=== PATIENT | female | born 1960 | race Caucasian/White ===

== ENCOUNTER → 2020-04-04 | Outpatient (CLI) | payer MEDICAID, OTHER ==
[2016-08-22 15:54] VITALS: BP 166/72
[~2020-04-04] MED LIST: CALC500T54 PO; CHOL500045 PO; LEVO50TA5 PO; MUPI22OI2 TP; SULF1TAB24 PO
--- NOTE | 2020-04-04 14:39 | KCIC ---
5 views of the lumbar spine without comparison for mild low back pain, no known injury. FINDINGS: There has been a prior cholecystectomy. There is an age-indeterminate compression deformity of L1, which appears to be fused anteriorly to T12 by osteophytes. There may be subtle height loss at T10 as well. There is increased sclerosis of L5 as well as the superior endplate of S1, and perhaps some mild widening of the joint space at this level. Facet arthrosis is seen in the lower levels as well. Uncovertebral osteophytes are present at multiple levels. IMPRESSION: 1. Age-indeterminate compression deformity of L1, with possible height loss at T10 as well. 2. Increased sclerosis of L5 and S1, with subtle widening of the L5-S1 intervertebral disc space and mild indistinctness of the margins. Findings could be degenerative, or congenital, however discitis/osteomyelitis cannot be excluded and further evaluation with MRI should be considered. Electronically signed by: Javier Conley MD (04/04/2020 2:36 PM) [id number]
== END | disposition home or self-care (01) ==
LOC: KCIC 10:21
PROVIDERS: ATTEND Family Medicine
DX: M51.87 Other intervertebral disc disorders, lumbosacral region (principal); M43.8X6 Other specified deforming dorsopathies, lumbar region
CPT/HCPCS: 72110

== ENCOUNTER → 2020-05-11 | Outpatient (CLI) | payer MEDICAID, OTHER ==
[2016-08-22 15:54] VITALS: BP 166/72
[~2020-05-11] MED LIST changes: +CALC-30 PO; +LEVO100T5 PO; +LORA10TA3 PO; +POLY17PO29 PO
--- NOTE | 2020-05-11 15:49 | KCIC ---
MRI Lumbar Spine without contrast History: Lumbar pain, abnormal x-ray Technique: Multiplanar, multi sequential noncontrast MR imaging was performed of the lumbar spine. Comparison: Lumbar spine radiographs April 04, 2020 Findings: There is some motion. Most inferior fully formed intervertebral disc space at which there is edema is considered L5-S1. There is edema diffusely of L5 and S1 vertebral bodies as well as increased edema and likely some fluid in the widened L5-S1 intervertebral disc space. There is mild inferior L5 endplate concavity. There is old superior L1 compression deformity without osseous retropulsion or marrow edema. Conus terminates at the mid aspect of L1. There is moderate to severe L4-5 degenerative disc disease, minimally L2-3, minimal disc desiccation L1-2 and L3-4. L1-L2: There is mild facet degenerative change. This level was not fully included on the axial images. Neural foramina and spinal canal are adequate. L2-L3: There is minimal bulge. There is mild buckling of the ligamentum flavum and facet degenerative change. There is mild narrowing of the far lateral recesses greater on the left. There is minimal posterior narrowing of the left neural foramen by facet, right neural foramen adequate. L3-L4: There is minimal buckling of the ligamentum flavum. Spinal canal and neural foramina are adequate. L4-L5: There is minimal disc osteophyte complex and bulge. There is mild buckling of the ligamentum flavum and facet degenerative change. There is mild narrowing of the far left lateral recess. There is mild narrowing of the left neural foramen, right neural foramen overall adequate. L5-S1: There is probable minimal posterior bulge. There is mild prominence of posterior epidural fat centrally. There is mild facet degenerative change. Spinal canal is overall adequate. There is fairly severe narrowing of the bilateral neural foramina in part from some heterogeneous signal emanating from the intervertebral disc space which may be in part from disc osteophyte complex and edematous bulge. Impression: 1. There is diffuse abnormal edema of what is considered the L5-S1 vertebral bodies as well as edematous signal abnormality in the widened L5-S1 intervertebral disc space. Primary concern would be for infectious spondylitis. Edematous signal abnormality contributes to fairly severe bilateral L5-S1 neural foramina compromise. 2. There is no significant lumbar spinal stenosis, mild narrowing of the far left lateral recess at L4-5. 3. There is old superior L1 compression deformity. Electronically signed by: Chay Tipton MD (05/11/2020 3:46 PM) [id number]
== END ==
LOC: KCIC MRI 12:33
PROVIDERS: ATTEND Family Medicine
DX: M51.36 Other intervertebral disc degeneration, lumbar region (principal); M25.78 Osteophyte, vertebrae
CPT/HCPCS: 72148

== ENCOUNTER 2020-05-12 17:58 | Inpatient (IN) | payer OTHER, MEDICAID ==
[~2020-05-12] VITALS: Ht 149.9 cm; Wt 95.2 kg
[~2020-05-12 17:58] MED LIST changes: -CALC-30 PO; -LEVO100T5 PO; -LORA10TA3 PO; -POLY17PO29 PO
[2020-05-12] MEDS ORDERED: LEVO100T5 PO (18:45)
[2020-05-12] MEDS ORDERED: LORA10TA3 PO (18:45)
[2020-05-12] MEDS ORDERED: POLY17PO29 PO (18:45)
[2020-05-12] MEDS ORDERED: CALC-30 PO (18:45)
--- NOTE | 2020-05-12 20:14 | PHYS DOC ---
Past Medical History Past Medical History: Gallstones, Hypothyroid, Other Additional Past Medical Histor: developmentally delayed Past Surgical History: Cholecystectomy Smoking Status: Never Smoker Alcohol Use: None Drug Use: None General Adult EDM: Chief Complaint: OTHER COMPLAINTS HPI: HPI: Patient is a 60 year old female who presents with saw Dr. Weaver today and has been seeing him for the last several months for her low back pain. She has been having low back pain for several months and they have been using a heating pad and ibuprofen but is not been helping. She had a MRI done and read came back stating that she has possible infectious spondylitis. Dr. Weaver is wanting her to be evaluated here in the ED. Patient lives in a nursing home as she is developmentally delayed. Patient is unable to answer questions about her health. Patient states her name and follows very simple directions. The nurse called Cecil and he was the nurse at the developmental home and talk to her. Patient has history of gallstones, hypothyroidism, cholecystectomy. There is no one here from the nursing home with the patient. Patient is very scared and stating that " I want to go home". Patient is denying any pain is more. Vital signs are within normal limits. Review of Systems: Review of Systems: Constitutional: Denies fever or chills. [] Eyes: Denies change in visual acuity. [] HENT: Denies nasal congestion or sore throat. [] Respiratory: Denies cough or shortness of breath. [] Cardiovascular: Denies chest pain or edema. [] GI: Denies abdominal pain, nausea, vomiting, bloody stools or diarrhea. [] : Denies dysuria. [] Musculoskeletal: Low back pain or joint pain. [] Integument: Denies rash. [] Neurologic: Denies headache, focal weakness or sensory changes. [] Endocrine: Denies polyuria or polydipsia. [] Lymphatic: Denies swollen glands. [] Psychiatric: Denies depression or anxiety. [] Heart Score: Risk Factors: Risk Factors: DM, Current or recent (<one month) smoker, HTN, HLP, family history of CAD, obesity. Risk Scores: Score 0 - 3: 2.5% MACE over next 6 weeks - Discharge Home Score 4 - 6: 20.3% MACE over next 6 weeks - Admit for Clinical Observation Score 7 - 10: 72.7% MACE over next 6 weeks - Early Invasive Strategies Allergies: Allergies: Allergies Coded Allergies Type Severity Reaction Last Updated Verified No Known Drug Allergies 05/12/20 No Physical Exam: PE: Constitutional: Well developed, well nourished, no acute distress, non-toxic appearance. [] HENT: Normocephalic, atraumatic, bilateral external ears normal, oropharynx mois t, no oral exudates, nose normal. [] Eyes: PERRLA, EOMI, conjunctiva normal, no discharge. [] Neck: Normal range of motion, no tenderness, supple, no stridor. [] Cardiovascular:Heart rate regular rhythm, no murmur [] Lungs & Thorax: Bilateral breath sounds clear to auscultation [] Abdomen: Bowel sounds normal, soft, no tenderness, no masses, no pulsatile masses. [] Skin: Warm, dry, no erythema, no rash. [] Back: No tenderness, no CVA tenderness. [] Extremities: No tenderness, no cyanosis, no clubbing, ROM intact, no edema. [] Neurologic: Alert and oriented X 3, normal motor function, normal sensory function, no focal deficits noted. [] Psychologic: Affect normal, judgement normal, mood normal. Normal Physical Exam[] Current Patient Data: Vital Signs: Vital Signs Date Time Temp Pulse Resp B/P (MAP) Pulse Ox O2 Delivery O2 Flow Rate FiO2 05/12/20 18:15 98.8 107 24 160/92 (114) 99 Room Air 98.8 EKG: EKG: [] Radiology/Procedures: Radiology/Procedures: [] Impression: [facility] [address] [place] [address] IMAGING REPORT Signed PATIENT: JULIO BEY ACCOUNT: [id number] : 1960 LOCATION: [facility] MRI AGE: 60 SEX: F EXAM STATUS: REG CLI ORD. PHYSICIAN: LALA WEAVER MD REASON: LUMBAR PAIN PROCEDURE: LUMBAR SPINE WO CONTRAST MRI Lumbar Spine without contrast History: Lumbar pain, abnormal x-ray Technique: Multiplanar, multi sequential noncontrast MR imaging was performed of the lumbar spine. Comparison: Lumbar spine radiographs April 04, 2020 Findings: There is some motion. Most inferior fully formed intervertebral disc space at which there is edema is considered L5-S1. There is edema diffusely of L5 and S1 vertebral bodies as well as increased edema and likely some fluid in the widened L5-S1 intervertebral disc space. There is mild inferior L5 endplate concavity. There is old superior L1 compression deformity without osseous retropulsion or marrow edema. Conus terminates at the mid aspect of L1. There is moderate to severe L4-5 degenerative disc disease, minimally L2-3, minimal disc desiccation L1-2 and L3-4. L1-L2: There is mild facet degenerative change. This level was not fully included on the axial images. Neural foramina and spinal canal are adequate. L2-L3: There is minimal bulge. There is mild buckling of the ligamentum flavum and facet degenerative change. There is mild narrowing of the far lateral recesses greater on the left. There is minimal posterior narrowing of the left neural foramen by facet, right neural foramen adequate. L3-L4: There is minimal buckling of the ligamentum flavum. Spinal canal and neural foramina are adequate. L4-L5: There is minimal disc osteophyte complex and bulge. There is mild buckling of the ligamentum flavum and facet degenerative change. There is mild narrowing of the far left lateral recess. There is mild narrowing of the left neural foramen, right neural foramen overall adequate. L5-S1: There is probable minimal posterior bulge. There is mild prominence of posterior epidural fat centrally. There is mild facet degenerative change. Spinal canal is overall adequate. There is fairly severe narrowing of the bilateral neural foramina in part from some heterogeneous signal emanating from the intervertebral disc space which may be in part from disc osteophyte complex and edematous bulge. Impression: 1. There is diffuse abnormal edema of what is considered the L5-S1 vertebral bodies as well as edematous signal abnormality in the widened L5-S1 intervertebral disc space. Primary concern would be for infectious spondylitis. Edematous signal abnormality contributes to fairly severe bilateral L5-S1 neural foramina compromise. 2. There is no significant lumbar spinal stenosis, mild narrowing of the far left lateral recess at L4-5. 3. There is old superior L1 compression deformity. Electronically signed by: Germán Ochoa MD (05/11/2020 3:46 PM) [id number] DICTATED and SIGNED BY: GERMÁN OCHOA MD DATE: 05/11/20 1546 Course & Med Decision Making: Course & Med Decision Making Pertinent Labs and Imaging studies reviewed. (See chart for details) See HPI. Abdomen is soft and nontender. Skin pink warm and dry. Vital signs within normal limits. No tenderness or bruising or deformity seen to the patient's back and there is no spine bony spiny focal tenderness with palpation. Patient is able to sit up in the bed on her own. She is moving all extremities equally and normal. She has full range of motion of her neck. Ambulatory with a steady gait. Alert and oriented. MRI Impression: 1. There is diffuse abnormal edema of what is considered the L5-S1 vertebral bodies as well as edematous signal abnormality in the widened L5-S1 intervertebral disc space. Primary concern would be for infectious spondylitis. Edematous signal abnormality contributes to fairly severe bilateral L5-S1 neural foramina compromise. 2. There is no significant lumbar spinal stenosis, mild narrowing of the far left lateral recess at L4-5. 3. There is old superior L1 compression deformity. Blood work unremarkable. We do not currently have any neurosurgery on at this time. I called ID and spoke with Dr Figueroa and she stated no antibiotics at this time because a Biopsy needs to be done first. [] Summer Disclaimer: Summer Disclaimer: This electronic medical record was generated, in whole or in part, using a voice recognition dictation system. 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
[2020-05-12 20:49] LABS: BILIRUBIN,URINE NEGATIVE (NEG); CLARITY,URINE CLEAR; COLOR,URINE YELLOW; NITRITE,URINE NEGATIVE (NEG); PH,URINE 5.5 (<5.0-8.0); PROTEIN,URINE NEGATIVE (NEG-TRACE); UROBILINOGEN,URINE 0.2 mg/dL (0.2 mg/dL)
[2020-05-12 20:49] LABS: BASO % 0 % (0-3); EOS # 0.3 x10^3/uL (0.0-0.7); EOS % 4 % (0-3); HEMATOCRIT 38.1 % (36.0-47.0); HEMOGLOBIN 12.9 g/dL (12.0-15.5); LYMPH # 1.3 x10^3/uL (1.0-4.8); LYMPH % 18 % (24-48); MEAN CORPUSCULAR HEMOGLOBIN 32 pg (25-35); MEAN CORPUSCULAR HGB CONC 34 g/dL (31-37); MEAN CORPUSCULAR VOLUME 94 fL (79-100); MONO # 0.7 x10^3/uL (0.0-1.1); MONO % 9 % (0-9); NEUT # 4.9 x10^3/uL (1.8-7.7); NEUT % 69 % (31-73); PLATELET COUNT 179 x10^3/uL (140-400); RED BLOOD COUNT 4.06 x10^6/uL (3.50-5.40); RED CELL DISTRIBUTION WIDTH 14.5 % (11.5-14.5); WHITE BLOOD COUNT 7.2 x10^3/uL (4.0-11.0)
[2020-05-12 20:53] LABS: BACTERIA,URINE FEW /HPF (0-FEW); RBC,URINE OCC /HPF (0-2); SQUAMOUS EPITHELIAL CELL,UR MANY /LPF
[2020-05-12 20:57] LABS: CALCIUM 9.6 mg/dL (8.5-10.1); CREATININE 0.9 mg/dL (0.6-1.0); GFR 63.7; POTASSIUM 4.8 mmol/L (3.5-5.1)
[2020-05-12 21:02] LABS: ALBUMIN 3.6 g/dL (3.4-5.0); ALBUMIN/GLOBULIN RATIO 0.9 (1.0-1.7); TOTAL BILIRUBIN 0.3 mg/dL (0.2-1.0); TOTAL PROTEIN 7.7 g/dL (6.4-8.2)
[2020-05-13] VITALS (7 sets, daily range): BP systolic 133–164; BP diastolic 56–99
[2020-05-13] MEDS ORDERED: ACETAMINOPHEN 325 MG TABLET. PO PRN (05:15)
--- NOTE | 2020-05-13 11:01 | PDOC1 ---
History and Physical Date of Admission Date of Admission DATE: 05/13/20 TIME: 11:01 History of Present Illness History of Present Illness Ms. Meyers, is a 60 year old female who presents with saw Dr. Aguiar today and has been seeing him for the last several months for her low back pain. She has been having low back pain for several months and they have been using a heating pad and ibuprofen but is not been helping. She had a MRI done and read came back stating that she has possible infectious spondylitis. Dr. Aguiar is wanting her to be evaluated here in the ED. Patient lives in a correction as she is developmentally delayed. Patient is unable to answer questions about her health. Patient states her name and follows very simple directions. The nurse called Cecil and he was the nurse at the developmental home and talk to her. Patient has history of gallstones, hypothyroidism, cholecystectomy. There is no one here from the correction with the patient. Patient is very scared and stating that " I want to go home". Patient is denying any pain is more. Vital signs are within normal limits. 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 1 Lizeth TP TID Bactrim Ds Tablet (Sulfamethoxazole/Trimethoprim) 1 Each Tablet 1 Each PO BID Reported Miralax (Polyethylene Glycol 3350) 17 Gm Powd.pack 1 Pkt PO DAILY Loratadine 10 Mg Tablet 1 Tab PO DAILY Levothyroxine Sodium 100 Mcg Tablet 1 Tab PO DAILY Calcium 500 + Vit D 400 Tablet (Calcium Carbonate/Vitamin D3) 1 Each Tablet 1 Tab PO DAILY 30 Days Vitamin D (Cholecalciferol (Vitamin D3)) 5,000 Unit Tablet 5,000 Unit PO Allergies Allergies: Coded Allergies: No Known Drug Allergies (Unverified , 05/12/20) ROS Review of System unable, mental status, she repeatedly says "ice cream" denied back pain Physical Exam General: Alert, Cooperative, mild distress (upset about things, is animated about wanting colored pencils and such, ) HEENT: Atraumatic Lungs: Clear to auscultation Heart: S1S2 Abdomen: Normal bowel sounds, Soft Extremities: No clubbing, No edema, Normal pulses Skin: No breakdown Neuro: Sensation intact, Other Psych/Mental Status: Other (baseline mental status low) Vitals Vitals Vital Signs Date Time Temp Pulse Resp B/P (MAP) Pulse Ox O2 Delivery O2 Flow Rate FiO2 05/13/20 07:59 98.9 80 18 164/83 (110) 96 Room Air 98.9 Labs Labs Laboratory Tests Test 05/12/20 20:25 05/12/20 20:37 05/13/20 06:45 Urine Collection Type Unknown Urine Color Yellow Urine Clarity Clear Urine pH 5.5 (<5.0-8.0) Urine Specific [place] 1.015 (1.000-1.030) Urine Protein Negative mg/dL (NEG-TRACE) Urine Glucose (UA) Negative mg/dL (NEG) Urine Ketones (Stick) Negative mg/dL (NEG) Urine Blood Negative (NEG) Urine Nitrite Negative (NEG) Urine Bilirubin Negative (NEG) Urine Urobilinogen Dipstick 0.2 mg/dL (0.2 mg/dL) Urine Leukocyte Esterase Moderate (NEG) Urine RBC Occ /HPF (0-2) Urine WBC 1-4 /HPF (0-4) Urine Squamous Epithelial Cells Many /LPF Urine Bacteria Few /HPF (0-FEW) Urine Mucus Mod /LPF White Blood Count 7.2 x10^3/uL (4.0-11.0) Red Blood Count 4.06 x10^6/uL (3.50-5.40) Hemoglobin 12.9 g/dL (12.0-15.5) Hematocrit 38.1 % (36.0-47.0) Mean Corpuscular Volume 94 fL (79-100) Mean Corpuscular Hemoglobin 32 pg (25-35) Mean Corpuscular Hemoglobin Concent 34 g/dL (31-37) Red Cell Distribution Width 14.5 % (11.5-14.5) Platelet Count 179 x10^3/uL (140-400) Neutrophils (%) (Auto) 69 % (31-73) Lymphocytes (%) (Auto) 18 % (24-48) Monocytes (%) (Auto) 9 % (0-9) Eosinophils (%) (Auto) 4 % (0-3) Basophils (%) (Auto) 0 % (0-3) Neutrophils # (Auto) 4.9 x10^3/uL (1.8-7.7) Lymphocytes # (Auto) 1.3 x10^3/uL (1.0-4.8) Monocytes # (Auto) 0.7 x10^3/uL (0.0-1.1) Eosinophils # (Auto) 0.3 x10^3/uL (0.0-0.7) Basophils # (Auto) 0.0 x10^3/uL (0.0-0.2) Sodium Level 139 mmol/L (136-145) Potassium Level 4.8 mmol/L (3.5-5.1) Chloride Level 103 mmol/L (98-107) Carbon Dioxide Level 28 mmol/L (21-32) Anion Gap 8 (6-14) Blood Urea Nitrogen 16 mg/dL (7-20) Creatinine 0.9 mg/dL (0.6-1.0) Estimated GFR (Cockcroft-Gault) 63.7 BUN/Creatinine Ratio 18 (6-20) Glucose Level 99 mg/dL (70-99) Calcium Level 9.6 mg/dL (8.5-10.1) Total Bilirubin 0.3 mg/dL (0.2-1.0) Aspartate Amino Transf (AST/SGOT) 39 U/L (15-37) Alanine Aminotransferase (ALT/SGPT) 33 U/L (14-59) Alkaline Phosphatase 112 U/L (46-116) Total Protein 7.7 g/dL (6.4-8.2) Albumin 3.6 g/dL (3.4-5.0) Albumin/Globulin Ratio 0.9 (1.0-1.7) Lactic Acid Level 1.3 mmol/L (0.4-2.0) Laboratory Tests Test 05/12/20 20:25 05/12/20 20:37 05/13/20 06:45 Urine Collection Type Unknown Urine Color Yellow Urine Clarity Clear Urine pH 5.5 (<5.0-8.0) Urine Specific [place] 1.015 (1.000-1.030) Urine Protein Negative mg/dL (NEG-TRACE) Urine Glucose (UA) Negative mg/dL (NEG) Urine Ketones (Stick) Negative mg/dL (NEG) Urine Blood Negative (NEG) Urine Nitrite Negative (NEG) Urine Bilirubin Negative (NEG) Urine Urobilinogen Dipstick 0.2 mg/dL (0.2 mg/dL) Urine Leukocyte Esterase Moderate (NEG) Urine RBC Occ /HPF (0-2) Urine WBC 1-4 /HPF (0-4) Urine Squamous Epithelial Cells Many /LPF Urine Bacteria Few /HPF (0-FEW) Urine Mucus Mod /LPF White Blood Count 7.2 x10^3/uL (4.0-11.0) Red Blood Count 4.06 x10^6/uL (3.50-5.40) Hemoglobin 12.9 g/dL (12.0-15.5) Hematocrit 38.1 % (36.0-47.0) Mean Corpuscular Volume 94 fL (79-100) Mean Corpuscular Hemoglobin 32 pg (25-35) Mean Corpuscular Hemoglobin Concent 34 g/dL (31-37) Red Cell Distribution Width 14.5 % (11.5-14.5) Platelet Count 179 x10^3/uL (140-400) Neutrophils (%) (Auto) 69 % (31-73) Lymphocytes (%) (Auto) 18 % (24-48) Monocytes (%) (Auto) 9 % (0-9) Eosinophils (%) (Auto) 4 % (0-3) Basophils (%) (Auto) 0 % (0-3) Neutrophils # (Auto) 4.9 x10^3/uL (1.8-7.7) Lymphocytes # (Auto) 1.3 x10^3/uL (1.0-4.8) Monocytes # (Auto) 0.7 x10^3/uL (0.0-1.1) Eosinophils # (Auto) 0.3 x10^3/uL (0.0-0.7) Basophils # (Auto) 0.0 x10^3/uL (0.0-0.2) Sodium Level 139 mmol/L (136-145) Potassium Level 4.8 mmol/L (3.5-5.1) Chloride Level 103 mmol/L (98-107) Carbon Dioxide Level 28 mmol/L (21-32) Anion Gap 8 (6-14) Blood Urea Nitrogen 16 mg/dL (7-20) Creatinine 0.9 mg/dL (0.6-1.0) Estimated GFR (Cockcroft-Gault) 63.7 BUN/Creatinine Ratio 18 (6-20) Glucose Level 99 mg/dL (70-99) Calcium Level 9.6 mg/dL (8.5-10.1) Total Bilirubin 0.3 mg/dL (0.2-1.0) Aspartate Amino Transf (AST/SGOT) 39 U/L (15-37) Alanine Aminotransferase (ALT/SGPT) 33 U/L (14-59) Alkaline Phosphatase 112 U/L (46-116) Total Protein 7.7 g/dL (6.4-8.2) Albumin 3.6 g/dL (3.4-5.0) Albumin/Globulin Ratio 0.9 (1.0-1.7) Lactic Acid Level 1.3 mmol/L (0.4-2.0) VTE Prophylaxis Ordered VTE Prophylaxis Devices: Yes VTE Pharmacological Prophylaxi: No Assessment/Plan Assessment/Plan back pain, infectious spondylitis obese, BMI 41 poor cognition, disabled, lives in a correction, has taken out IV, wants to hug everybody MRI Impression: 1. There is diffuse abnormal edema of what is considered the L5-S1 vertebral bodies as well as edematous signal abnormality in the widened L5-S1 intervertebral disc space. Primary concern would be for infectious spondylitis. Edematous signal abnormality contributes to fairly severe bilateral L5-S1 neural foramina compromise. 2. There is no significant lumbar spinal stenosis, mild narrowing of the far left lateral recess at L4-5. 3. There is old superior L1 compression deformity. Blood work unremarkable. We do not currently have any neurosurgery on at this time. I called ID and spoke with Dr Figueroa and she stated no antibiotics at this time because a Biopsy needs to be done first. Justicifation of Admission Dx: Justifications for Admission: Justification of Admission Dx: Yes EDGAR DUNCAN MD May 13, 2020 11:01
[2020-05-13] MEDS: POLYETHYLENE GLYCOL 3350 17 GM PACKET. PO SCH (11:30)
[2020-05-13] MEDS: MUPIROCIN 2 % NASAL OINTMENT 22GM TUBE. TP SCH ×2 (14:00→21:00)
--- NOTE | 2020-05-13 14:10 | PDOC ---
Infectious Disease Note Vital Sign Vital Signs Vital Signs Date Time Temp Pulse Resp B/P (MAP) Pulse Ox O2 Delivery O2 Flow Rate FiO2 05/13/20 11:56 98.2 83 18 143/61 (88) 95 Room Air 98.2 Labs Lab Laboratory Tests Test 05/12/20 20:25 05/12/20 20:37 05/13/20 06:45 Urine Collection Type Unknown Urine Color Yellow Urine Clarity Clear Urine pH 5.5 (<5.0-8.0) Urine Specific [place] 1.015 (1.000-1.030) Urine Protein Negative mg/dL (NEG-TRACE) Urine Glucose (UA) Negative mg/dL (NEG) Urine Ketones (Stick) Negative mg/dL (NEG) Urine Blood Negative (NEG) Urine Nitrite Negative (NEG) Urine Bilirubin Negative (NEG) Urine Urobilinogen Dipstick 0.2 mg/dL (0.2 mg/dL) Urine Leukocyte Esterase Moderate (NEG) Urine RBC Occ /HPF (0-2) Urine WBC 1-4 /HPF (0-4) Urine Squamous Epithelial Cells Many /LPF Urine Bacteria Few /HPF (0-FEW) Urine Mucus Mod /LPF White Blood Count 7.2 x10^3/uL (4.0-11.0) Red Blood Count 4.06 x10^6/uL (3.50-5.40) Hemoglobin 12.9 g/dL (12.0-15.5) Hematocrit 38.1 % (36.0-47.0) Mean Corpuscular Volume 94 fL (79-100) Mean Corpuscular Hemoglobin 32 pg (25-35) Mean Corpuscular Hemoglobin Concent 34 g/dL (31-37) Red Cell Distribution Width 14.5 % (11.5-14.5) Platelet Count 179 x10^3/uL (140-400) Neutrophils (%) (Auto) 69 % (31-73) Lymphocytes (%) (Auto) 18 % (24-48) Monocytes (%) (Auto) 9 % (0-9) Eosinophils (%) (Auto) 4 % (0-3) Basophils (%) (Auto) 0 % (0-3) Neutrophils # (Auto) 4.9 x10^3/uL (1.8-7.7) Lymphocytes # (Auto) 1.3 x10^3/uL (1.0-4.8) Monocytes # (Auto) 0.7 x10^3/uL (0.0-1.1) Eosinophils # (Auto) 0.3 x10^3/uL (0.0-0.7) Basophils # (Auto) 0.0 x10^3/uL (0.0-0.2) Sodium Level 139 mmol/L (136-145) Potassium Level 4.8 mmol/L (3.5-5.1) Chloride Level 103 mmol/L (98-107) Carbon Dioxide Level 28 mmol/L (21-32) Anion Gap 8 (6-14) Blood Urea Nitrogen 16 mg/dL (7-20) Creatinine 0.9 mg/dL (0.6-1.0) Estimated GFR (Cockcroft-Gault) 63.7 BUN/Creatinine Ratio 18 (6-20) Glucose Level 99 mg/dL (70-99) Calcium Level 9.6 mg/dL (8.5-10.1) Total Bilirubin 0.3 mg/dL (0.2-1.0) Aspartate Amino Transf (AST/SGOT) 39 U/L (15-37) Alanine Aminotransferase (ALT/SGPT) 33 U/L (14-59) Alkaline Phosphatase 112 U/L (46-116) Total Protein 7.7 g/dL (6.4-8.2) Albumin 3.6 g/dL (3.4-5.0) Albumin/Globulin Ratio 0.9 (1.0-1.7) Lactic Acid Level 1.3 mmol/L (0.4-2.0) Objective Assessment Suspected infectious spondylitis of L5-S1 on MRI, 05/11 Chronic low back pain. Developmentally delay Hypothyroidism Resident of a correction. Plan Plan of Care Hold antibiotics. Consult IR for needle aspiration and cultures with gram stain (bacterial, fungal and AFB). Full consult to follow Thank you Patient seen and examined. Labs, micro, and chart reviewed. Discussed with Dr Eubanks. DR Ram has evaluated pt earlier today also.Plans are for IR guided biopsy . I agree with the above MAKING DEPARTMENT PREPARER. Attending Co-Sign Attending Co-Sign The patient was seen and interviewed as well as examined at the bedside with MAKING DEPARTMENT PREPARER. The chart was reviewed D/W DR Eubanks. DR Ram has evaluated pt this am. Agree with the plan of care. DIANA OROURKE APRN May 13, 2020 14:10 NICKIE BURLESON MD May 13, 2020 14:18
[2020-05-13] MEDS: CETIRIZINE HCL 10 MG TABLET. PO SCH (14:41)
[2020-05-13] MEDS: CALCIUM CARB/VIT D3 500/200 TABLET. PO SCH (14:41)
[2020-05-13] MEDS: LEVOTHYROXINE 100 MCG TABLET PO SCH (14:41)
--- NOTE | 2020-05-13 19:50 | CONS ---
DATE OF CONSULTATION: 05/13/2020 REFERRING PHYSICIAN: Mirela , SEWING MACHINE [employer]SEMBLER REASON FOR CONSULTATION: Infected spondylitis. HISTORY OF PRESENT ILLNESS: This patient is a 60-year-old developmentally delayed female who lives in a [facility]p. She has been followed by Dr. Aguiar for low back pain for over the past several months. Unrelieved with a heating pad and ibuprofen. An MRI on 05/11/2020 showed findings concerning for infectious spondylitis of L5-S1. She has since been admitted for further evaluation and treatment. PAST MEDICAL HISTORY: Hypothyroidism, developmentally delayed, history of gallstones, osteopenia and glucose intolerance. PAST SURGICAL HISTORY: Cholecystectomy. SOCIAL HISTORY: The patient is disabled. She lives in a usp. She is single. FAMILY HISTORY: She had a sister who of pancreatic cancer. ALLERGIES: No KNOWN DRUG ALLERGIES. MEDICATIONS: Reviewed on the NOV. She currently is not on any antimicrobial medications. REVIEW OF SYSTEMS: The patient is indicating that she is not having any back pain. She has not had any fevers reported. Other review of systems limited due to cognitive impairment. PHYSICAL EXAMINATION: VITAL SIGNS: Temperature is 98.2, blood pressure 143/61, heart rate 83, respiratory rate 18, pulse oximetry is 95%. GENERAL: The patient is propped up in bed, alert. She is coloring and giving me a high 5. HEENT: Normal conjunctivae. Oropharynx pink and moist. Dentures in place. NECK: Supple. LUNGS: Clear to auscultation. HEART: S1 and S2. BACK: There are no wounds, redness or warmth, nontender. ABDOMEN: Obese, soft, nontender with bowel sounds present. EXTREMITIES: No gross edema or cyanosis. SKIN: Warm to touch. No signs of rash. NEUROLOGIC: Alert. Answers simple questions appropriately, follows cues. She moves all extremities. LABORATORY DATA: Today's WBC 7.2, hemoglobin 12.9, platelets 179,000. Electrolytes are unremarkable. Creatinine 0.9, BUN 16, glucose 99. Lactic acid 1.3, total bilirubin 0.3, AST 39, ALT 33, alkaline phosphatase 112. CRP 17.2, albumin 3.6. Lumbar spine x-ray on 04/04/2020 showed increased sclerosis of L5 and S1 with subtle widening of the L5-S1 intervertebral disk space and mild and distinctness of the margins. Lumbar spine MRI on 05/11/2020 reviewed. Diffuse abnormal edema of what is considered the L5-S1 vertebral bodies as well as edematous signal abnormality in the widen L5-S1 intervertebral disk space. Primary concern would be for an infectious spondylitis. Edematous signal abnormality contributes to fairly severe bilateral L5-S1 neural foraminal compromise. IMPRESSION Suspected infectious spondylitis of L5-S1 on MRI, 05/11 Chronic low back pain. Developmentally delay Hypothyroidism Resident of a usp. Recommendations 1. Recommend holding antibiotics. 2. Consult Interventional Radiology for needle aspiration. Request tissue/fluid cultures with Gram stain. 3. Awaiting neurosurgical evaluation. Thank you, Mirela , KESHIA for asking us to participate in this patient's care. Should you have further questions or concerns, please call. The patient was seen and examined and plan of care implemented by Dr. Andrea Burleson. Discussed with Dr. Eubanks. Neurosurgery has evaluated patient earlier this a.m. ANDREA BURLESON MD DR: MARK/josh JOB#: [id number] / [id number] FREEMAN
[2020-05-13] MEDS ORDERED: SMZ/TMP 800/160MG TABLET. PO SCH (21:00)
--- NOTE | 2020-05-13 22:00 | NUR ---
patient refused Covid swab, started crying. will inform doc in am
--- NOTE | 2020-05-13 22:06 | PDOC ---
Provider Note Provider Note Patient seen and examined at 1215 consulted for infectious spondylitis Imaging reviewed, spondylitis L5- S1 Will need IR for disc aspiration Friday with anesthesia ID following D/W Dr. Eubanks Justicifation of Admission Dx: Justifications for Admission: Justification of Admission Dx: Yes ISABELLE SAAVEDRA MD May 13, 2020 22:06
[2020-05-14] MEDS: LEVOTHYROXINE 100 MCG TABLET PO SCH (07:10)
[2020-05-14 07:59] VITALS: BP 141/71
[2020-05-14] MEDS: MUPIROCIN 2 % NASAL OINTMENT 22GM TUBE. TP SCH ×3 (09:00→21:00)
[2020-05-14] MEDS: POLYETHYLENE GLYCOL 3350 17 GM PACKET. PO SCH (09:20)
[2020-05-14] MEDS: CALCIUM CARB/VIT D3 500/200 TABLET. PO SCH (09:20)
[2020-05-14] MEDS: CETIRIZINE HCL 10 MG TABLET. PO SCH (09:20)
--- NOTE | 2020-05-14 10:37 | PDOC ---
Infectious Disease Note Vital Sign Vital Signs Vital Signs Date Time Temp Pulse Resp B/P (MAP) Pulse Ox O2 Delivery O2 Flow Rate FiO2 05/14/20 07:59 97.9 81 18 141/71 (94) 96 Room Air 97.9 Physical Exam PHYSICAL EXAM GENERAL: Propped up in bed, alert, smiling HEENT: Normal conjunctivae. Oropharynx pink and moist. Dentures in place. NECK: Supple. LUNGS: Clear to auscultation. HEART: S1 and S2. BACK: There are no wounds, redness or warmth, nontender. ABDOMEN: Obese, soft, nontender with bowel sounds present. EXTREMITIES: No gross edema or cyanosis. SKIN: Warm to touch. No signs of rash. NEUROLOGIC: Alert. Answers simple questions appropriately, follows cues. Moves all extremities. Labs Micro Microbiology 05/13/20 Blood Culture - Preliminary, Resulted NO GROWTH AFTER 1 DAY 05/12/20 Urine Culture - Final, Complete URINE CULTURE Final Final Three or more organisms isolated. Results consistent with colonization or contamination during the collection process. Recollection recommended using a method to minimize contamination. An ID and Sensitivity will be performed when one organism is predominant and a likely pathogen. Objective Assessment Suspected infectious spondylitis of L5-S1 on MRI, 05/11 Chronic low back pain. Developmentally delay Hypothyroidism Resident of a residential. Plan Plan of Care Hold antibiotics. Awaiting IR needle aspiration with cultures and gram stain (bacterial, fungal and AFB). D/w nursing Attending Co-Sign Attending Co-Sign The patient was seen and examined at the bedside. The chart was reviewed. The case was discussed. Agree with the plan of care. DIANA OROURKE APRN May 14, 2020 10:37 NICKIE BURLESON MD May 14, 2020 14:55
--- NOTE | 2020-05-14 11:14 | PDOC ---
PROGRESS NOTES Date of Service: DATE: 05/14/20 TIME: 11:13 Chief Complaint Chief Complaint Suspected infectious spondylitis of L5-S1 on MRI, 05/11 obesity, BMI 42 Chronic low back pain. Developmentally delay, MR, low baseline mental status Hypothyroidism Resident of a long-term. History of Present Illness History of Present Illness plan biopsy friday ID and neurosurg following Vitals Vitals Vital Signs Date Time Temp Pulse Resp B/P (MAP) Pulse Ox O2 Delivery O2 Flow Rate FiO2 05/14/20 07:59 97.9 81 18 141/71 (94) 96 Room Air 97.9 Physical Exam Physical Exam GENERAL: Propped up in bed, alert, smiling HEENT: Normal conjunctivae. Oropharynx pink and moist. Dentures in place. NECK: Supple. LUNGS: Clear to auscultation. HEART: S1 and S2. BACK: There are no wounds, redness or warmth, nontender. ABDOMEN: Obese, soft, nontender with bowel sounds present. EXTREMITIES: No gross edema or cyanosis. SKIN: Warm to touch. No signs of rash. NEUROLOGIC: Alert. Answers simple questions appropriately, follows cues. Moves all extremities. 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 Labs Laboratory Tests Test 05/12/20 20:25 05/12/20 20:37 05/13/20 06:45 Urine Collection Type Unknown Urine Color Yellow Urine Clarity Clear Urine pH 5.5 (<5.0-8.0) Urine Specific [place] 1.015 (1.000-1.030) Urine Protein Negative mg/dL (NEG-TRACE) Urine Glucose (UA) Negative mg/dL (NEG) Urine Ketones (Stick) Negative mg/dL (NEG) Urine Blood Negative (NEG) Urine Nitrite Negative (NEG) Urine Bilirubin Negative (NEG) Urine Urobilinogen Dipstick 0.2 mg/dL (0.2 mg/dL) Urine Leukocyte Esterase Moderate (NEG) Urine RBC Occ /HPF (0-2) Urine WBC 1-4 /HPF (0-4) Urine Squamous Epithelial Cells Many /LPF Urine Bacteria Few /HPF (0-FEW) Urine Mucus Mod /LPF White Blood Count 7.2 x10^3/uL (4.0-11.0) Red Blood Count 4.06 x10^6/uL (3.50-5.40) Hemoglobin 12.9 g/dL (12.0-15.5) Hematocrit 38.1 % (36.0-47.0) Mean Corpuscular Volume 94 fL (79-100) Mean Corpuscular Hemoglobin 32 pg (25-35) Mean Corpuscular Hemoglobin Concent 34 g/dL (31-37) Red Cell Distribution Width 14.5 % (11.5-14.5) Platelet Count 179 x10^3/uL (140-400) Neutrophils (%) (Auto) 69 % (31-73) Lymphocytes (%) (Auto) 18 % (24-48) Monocytes (%) (Auto) 9 % (0-9) Eosinophils (%) (Auto) 4 % (0-3) Basophils (%) (Auto) 0 % (0-3) Neutrophils # (Auto) 4.9 x10^3/uL (1.8-7.7) Lymphocytes # (Auto) 1.3 x10^3/uL (1.0-4.8) Monocytes # (Auto) 0.7 x10^3/uL (0.0-1.1) Eosinophils # (Auto) 0.3 x10^3/uL (0.0-0.7) Basophils # (Auto) 0.0 x10^3/uL (0.0-0.2) Sodium Level 139 mmol/L (136-145) Potassium Level 4.8 mmol/L (3.5-5.1) Chloride Level 103 mmol/L (98-107) Carbon Dioxide Level 28 mmol/L (21-32) Anion Gap 8 (6-14) Blood Urea Nitrogen 16 mg/dL (7-20) Creatinine 0.9 mg/dL (0.6-1.0) Estimated GFR (Cockcroft-Gault) 63.7 BUN/Creatinine Ratio 18 (6-20) Glucose Level 99 mg/dL (70-99) Calcium Level 9.6 mg/dL (8.5-10.1) Total Bilirubin 0.3 mg/dL (0.2-1.0) Aspartate Amino Transf (AST/SGOT) 39 U/L (15-37) Alanine Aminotransferase (ALT/SGPT) 33 U/L (14-59) Alkaline Phosphatase 112 U/L (46-116) Total Protein 7.7 g/dL (6.4-8.2) Albumin 3.6 g/dL (3.4-5.0) Albumin/Globulin Ratio 0.9 (1.0-1.7) Lactic Acid Level 1.3 mmol/L (0.4-2.0) C-Reactive Protein, Quantitative 17.2 mg/L (0-3.3) Microbiology 05/13/20 Blood Culture - Preliminary, Resulted NO GROWTH AFTER 1 DAY 05/12/20 Urine Culture - Final, Complete Medications Current Medications Acetaminophen (Tylenol) 650 mg PRN Q6HRS PRN PO MILD PAIN 1-3; Start 05/13/20 at 05:15 Levothyroxine Sodium (Synthroid) 100 mcg DAILY06 PO Last administered on 05/14/20at 07:10; Start 05/13/20 at 11:30 Mupirocin (Bactroban) 1 lizeth TID TP ; Start 05/13/20 at 14:00 Polyethylene Glycol (miraLAX PACKET) 17 gm DAILY PO Last administered on 05/14/20at 09:20; Start 05/13/20 at 11:30 Trimethoprim/ Sulfamethoxazole (Bactrim Ds) 1 tab BID PO ; Start 05/13/20 at 21:00; Status UNV Calcium/Vitamin D (Oscal D 500mg/ 200uts) 1 tab DAILY PO Last administered on 05/14/20at 09:20; Start 05/13/20 at 11:30 Cetirizine HCl (ZyrTEC) 10 mg DAILY PO Last administered on 05/14/20at 09:20; Start 05/13/20 at 11:30 Active Scripts Active Mupirocin Ointment (Mupirocin) 22 Gm Oint...g. 1 Lizeth TP TID Bactrim Ds Tablet (Sulfamethoxazole/Trimethoprim) 1 Each Tablet 1 Each PO BID Reported Miralax (Polyethylene Glycol 3350) 17 Gm Powd.pack 1 Pkt PO DAILY Loratadine 10 Mg Tablet 1 Tab PO DAILY Levothyroxine Sodium 100 Mcg Tablet 1 Tab PO DAILY Calcium 500 + Vit D 400 Tablet (Calcium Carbonate/Vitamin D3) 1 Each Tablet 1 Tab PO DAILY 30 Days Vitamin D (Cholecalciferol (Vitamin D3)) 5,000 Unit Tablet 5,000 Unit PO Vitals/I & O Vital Sign - Last 24 Hours 05/13/20 05/13/20 05/13/20 05/13/20 11:56 15:20 19:12 23:00 Temp 98.2 98.9 98.3 98.4 98.2 98.9 98.3 98.4 Pulse 83 84 74 80 Resp 18 18 20 18 B/P (MAP) 143/61 (88) 133/56 (81) 142/60 (87) 139/59 (85) Pulse Ox 95 96 96 100 O2 Delivery Room Air Room Air Room Air Room Air 05/14/20 05/14/20 02:36 07:59 Temp 97.9 97.9 Pulse 81 Resp 18 B/P (MAP) 141/71 (94) Pulse Ox 96 O2 Delivery Room Air Room Air Intake and Output 05/13/20 05/13/20 05/14/20 15:00 23:00 07:00 Intake Total 400 ml Balance 400 ml Justicifation of Admission Dx: Justifications for Admission: Justification of Admission Dx: Yes EDGAR DUNCAN MD May 14, 2020 11:14
[2020-05-14 11:59] VITALS: BP 131/62
[2020-05-14 15:59] VITALS: BP 119/69
[2020-05-14 19:23] VITALS: BP 124/63
[2020-05-14 22:55] VITALS: BP 118/62
[2020-05-15] VITALS (7 sets, daily range): BP systolic 116–149; BP diastolic 57–77
[2020-05-15] MEDS: LEVOTHYROXINE 100 MCG TABLET PO SCH (05:42)
[2020-05-15] MEDS: MUPIROCIN 2 % NASAL OINTMENT 22GM TUBE. TP SCH ×3 (08:17→21:00)
[2020-05-15] MEDS: POLYETHYLENE GLYCOL 3350 17 GM PACKET. PO SCH (08:17)
[2020-05-15] MEDS: CETIRIZINE HCL 10 MG TABLET. PO SCH (08:17)
[2020-05-15] MEDS: CALCIUM CARB/VIT D3 500/200 TABLET. PO SCH (08:17)
[2020-05-15 08:53] LABS: PROTHROMBIN TIME PATIENT 13.8 SEC (11.7-14.0)
--- NOTE | 2020-05-15 09:22 | NUR ---
Covid swab collected and walked down to lab.
--- NOTE | 2020-05-15 09:33 | NUR ---
SW following. Discussed with RN, pt from [facility], regular diet, room air. Pt swabbed for COVID this mornign for procedure later today. Abx on hold at this time. SW will continue to follow.
--- NOTE | 2020-05-15 10:45 | NUR ---
IV attempt x 2 unsuccessful.
[2020-05-15] MEDS ORDERED: LIDOCAINE WITH 8.4% SOD BICARB 3 ML DISP.SYRIN. ONE (12:05)
[2020-05-15] MEDS ORDERED: MIDAZOLAM HCL/PF 2 MG/2 ML VIAL. ONE (13:31)
[2020-05-15] MEDS ORDERED: KETAMINE HCL 500 MG/10 ML VIAL. ONE (13:41)
[2020-05-15] MEDS ORDERED: PROPOFOL 10 MG/ML (20ML) VIAL. IV ONE (13:56)
[2020-05-15] MEDS ORDERED: LIDOCAINE 2% PF 5 ML VIAL. ONE (13:56)
[2020-05-15] MEDS ORDERED: LIDOCAINE WITH 8.4% SOD BICARB 3 ML DISP.SYRIN. INJ ONE (14:00)
[2020-05-15] MEDS ORDERED: fentaNYL PF VIAL 100 MCG/2 ML VIAL ONE (14:47)
[2020-05-15] MEDS ORDERED: PROCHLORPERAZINE 10 MG/2 ML VIAL. ONE (14:48)
--- NOTE | 2020-05-15 15:03 | RAD ---
05/15/2020 1. Attempted fluoroscopically guided disc aspiration 2. Fluoroscopically guided biopsy of the inferior aspect of the L5 vertebral body using a transpedicular approach Discussion The procedure was explained in its entirety to the patient or the patients designated sales representative church furniture by a member of the treatment team, including a discussion of the risks, benefits and commonly accepted alternatives to the procedure, as well as the expected consequences of no therapy whatsoever. Discussion of the risks included, but was not limited to, those that are most frequent and those that are rare but possibly severe or life-threatening, as well as the possibility of unforeseen complications. All elements of maximal sterile barrier technique including the use of a cap, mask, sterile gown, sterile gloves, large sterile sheet, appropriate hand hygiene, and 2% chlorhexidine for cutaneous antisepsis (or acceptable alternative antiseptic per current guidelines) were followed for this procedure. Fluoroscopic evaluation was performed. 2 delineated the L5-S1 vertebral bodies. Initially percutaneous disc aspiration was attempted. Patient body habitus, somewhat limited visualization, and fluoroscopic constraints, this was unsuccessful. Therefore a transpedicular biopsy of the inferior vertebral body at L5 was performed. Generalized biopsy with an extended into the disc space through the vertebral body, but given the patient's body habitus the length of the guiding needle, and angle of approach needed for such procedure was not technically feasible. The inferior vertebral body essentially to the level of the is inferior endplate was biopsied. No immediate complications were identified. Total fluoroscopy time: 17.9 min Dose area product: 420 Gycm2 Sedation was provided via the anesthesia department IMPRESSION: Fluoroscopically guided biopsy left L5 vertebral body extending to the inferior endplate
--- NOTE | 2020-05-15 15:23 | NUR ---
Pt. back from IR procedure. Lower back drsg CDI.
[2020-05-15] MEDS ORDERED: PROCHLORPERAZINE 10 MG/2 ML VIAL. IV ONE (15:30)
[2020-05-15] MEDS ORDERED: fentaNYL PF VIAL 100 MCG/2 ML VIAL IVP ONE (15:30)
--- NOTE | 2020-05-15 17:19 | PDOC ---
PROGRESS NOTES Date of Service: DATE: 05/15/20 TIME: 17:13 Chief Complaint Chief Complaint Suspected infectious spondylitis of L5-S1 on MRI, 05/11 obesity, BMI 42 Chronic low back pain. Developmentally delay, MR, low baseline mental status Hypothyroidism Resident of a [place] [facility]. History of Present Illness History of Present Illness Per nursing staff, s/p needle aspiration today. Patient lynn snot provide much history aside from stating she feels fine and denies fever or back pain. Vitals Vitals Vital Signs Date Time Temp Pulse Resp B/P (MAP) Pulse Ox O2 Delivery O2 Flow Rate FiO2 05/15/20 16:26 Room Air 05/15/20 15:41 98.0 72 16 124/68 (86) 94 2.0 98.0 Physical Exam Physical Exam GENERAL: Propped up in bed, alert, smiling HEENT: Normal conjunctivae. Oropharynx pink and moist. Dentures in place. NECK: Supple. LUNGS: Clear to auscultation. HEART: S1 and S2. BACK: There are no wounds, redness or warmth, nontender. ABDOMEN: Obese, soft, nontender with bowel sounds present. EXTREMITIES: No gross edema or cyanosis. SKIN: Warm to touch. No signs of rash. NEUROLOGIC: Alert. Answers simple questions appropriately, follows cues. Moves all extremities. General: Alert, Cooperative, No acute distress Abdomen: Normal bowel sounds, Soft Extremities: No clubbing, No edema, Normal pulses Skin: No breakdown Labs LABS Laboratory Tests Test 05/15/20 08:20 05/15/20 09:20 Prothrombin Time 13.8 SEC (11.7-14.0) Prothromb Time International Ratio 1.1 (0.8-1.1) SARS-CoV-2 Antigen (Rapid) Negative (NEGATIVE) Review of Systems Review of Systems Denies back pain, denies fever, denies nausea. 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 Labs Laboratory Tests Test 05/15/20 08:20 05/15/20 09:20 Prothrombin Time 13.8 SEC (11.7-14.0) Prothromb Time International Ratio 1.1 (0.8-1.1) SARS-CoV-2 Antigen (Rapid) Negative (NEGATIVE) Laboratory Tests Test 05/15/20 08:20 05/15/20 09:20 Prothrombin Time 13.8 SEC (11.7-14.0) Prothromb Time International Ratio 1.1 (0.8-1.1) SARS-CoV-2 Antigen (Rapid) Negative (NEGATIVE) Microbiology 05/13/20 Blood Culture - Preliminary, Resulted NO GROWTH AFTER 2 DAYS 05/12/20 Urine Culture - Final, Complete Medications Current Medications Acetaminophen (Tylenol) 650 mg PRN Q6HRS PRN PO MILD PAIN 1-3; Start 05/13/20 at 05:15 Levothyroxine Sodium (Synthroid) 100 mcg DAILY06 PO Last administered on 05/14/20at 07:10; Start 05/13/20 at 11:30 Mupirocin (Bactroban) 1 lizeth TID TP ; Start 05/13/20 at 14:00 Polyethylene Glycol (miraLAX PACKET) 17 gm DAILY PO Last administered on 05/14/20at 09:20; Start 05/13/20 at 11:30 Trimethoprim/ Sulfamethoxazole (Bactrim Ds) 1 tab BID PO ; Start 05/13/20 at 21:00; Status UNV Calcium/Vitamin D (Oscal D 500mg/ 200uts) 1 tab DAILY PO Last administered on 05/14/20at 09:20; Start 05/13/20 at 11:30 Cetirizine HCl (ZyrTEC) 10 mg DAILY PO Last administered on 05/14/20at 09:20; Start 05/13/20 at 11:30 Lidocaine HCl (Buffered Lidocaine 1%) 3 ml STK-MED ONCE .ROUTE ; Start 05/15/20 at 12:05; Stop 05/15/20 at 12:06; Status DC Midazolam HCl (Versed) 2 mg STK-MED ONCE .ROUTE ; Start 05/15/20 at 13:31; Stop 05/15/20 at 13:32; Status DC Ketamine HCl (Ketamine) 500 mg STK-MED ONCE .ROUTE ; Start 05/15/20 at 13:41; Stop 05/15/20 at 13:41; Status DC Lidocaine HCl (Buffered Lidocaine 1%) 3 ml 1X ONCE INJ Last administered on 05/15/20at 14:00; Start 05/15/20 at 14:00; Stop 05/15/20 at 14:01; Status DC Propofol (Diprivan) 200 mg STK-MED ONCE IV ; Start 05/15/20 at 13:56; Stop 05/15/20 at 13:56; Status DC Lidocaine HCl (Lidocaine Pf 2% Vial) 5 ml STK-MED ONCE .ROUTE ; Start 05/15/20 at 13:56; Stop 05/15/20 at 13:56; Status DC Fentanyl Citrate (Fentanyl 2ml Vial) 100 mcg STK-MED ONCE .ROUTE ; Start 05/15/20 at 14:47; Stop 05/15/20 at 14:48; Status DC Prochlorperazine Edisylate (Compazine) 10 mg STK-MED ONCE .ROUTE ; Start 05/15/20 at 14:48; Stop 05/15/20 at 14:48; Status DC Fentanyl Citrate (Fentanyl 2ml Vial) 50 mcg 1X ONCE IVP Last administered on 05/15/20at 15:39; Start 05/15/20 at 15:30; Stop 05/15/20 at 15:34; Status DC Prochlorperazine Edisylate (Compazine) 5 mg 1X ONCE IV Last administered on 05/15/20at 15:38; Start 05/15/20 at 15:30; Stop 05/15/20 at 15:34; Status DC Active Scripts Active Mupirocin Ointment (Mupirocin) 22 Gm Oint...g. 1 Lizeth TP TID Bactrim Ds Tablet (Sulfamethoxazole/Trimethoprim) 1 Each Tablet 1 Each PO BID Reported Miralax (Polyethylene Glycol 3350) 17 Gm Powd.pack 1 Pkt PO DAILY Loratadine 10 Mg Tablet 1 Tab PO DAILY Levothyroxine Sodium 100 Mcg Tablet 1 Tab PO DAILY Calcium 500 + Vit D 400 Tablet (Calcium Carbonate/Vitamin D3) 1 Each Tablet 1 Tab PO DAILY 30 Days Vitamin D (Cholecalciferol (Vitamin D3)) 5,000 Unit Tablet 5,000 Unit PO Vitals/I & O Vital Sign - Last 24 Hours 05/14/20 05/14/20 05/15/20 05/15/20 19:23 22:55 03:11 07:00 Temp 98.4 98.0 98.0 98.6 98.4 98.0 98.0 98.6 Pulse 71 68 71 78 Resp 18 18 18 18 B/P (MAP) 124/63 (83) 118/62 (80) 121/59 (79) 134/57 (82) Pulse Ox 92 95 95 95 O2 Delivery Room Air Room Air Room Air Room Air 05/15/20 05/15/20 05/15/20 05/15/20 11:00 14:45 14:49 14:49 Temp 97.7 97.7 97.7 97.7 Pulse 92 73 73 Resp 20 13 15 B/P (MAP) 149/64 (92) 116/77 (90) 121/74 Pulse Ox 97 98 98 O2 Delivery Room Air Nasal Cannula Nasal Cannula O2 Flow Rate 2.0 2.0 2.0 05/15/20 05/15/20 05/15/20 15:39 15:41 16:26 Temp 98.0 98.0 Pulse 72 Resp 15 16 B/P (MAP) 124/68 (86) Pulse Ox 98 94 O2 Delivery Nasal Cannula Nasal Cannula Room Air O2 Flow Rate 2.0 2.0 Intake and Output 05/14/20 05/14/20 05/15/20 15:00 23:00 07:00 Intake Total 120 ml 480 ml 240 ml Balance 120 ml 480 ml 240 ml Justicifation of Admission Dx: Justifications for Admission: Justification of Admission Dx: Yes IVAN MARRERO MD May 15, 2020 17:19
[2020-05-16 03:00] VITALS: BP 124/64
[2020-05-16 04:50] LABS: BASO % 0 % (0-3); EOS # 0.2 x10^3/uL (0.0-0.7); EOS % 3 % (0-3); HEMATOCRIT 36.8 % (36.0-47.0); HEMOGLOBIN 12.4 g/dL (12.0-15.5); LYMPH # 1.4 x10^3/uL (1.0-4.8); LYMPH % 22 % (24-48); MEAN CORPUSCULAR HEMOGLOBIN 32 pg (25-35); MEAN CORPUSCULAR HGB CONC 34 g/dL (31-37); MEAN CORPUSCULAR VOLUME 94 fL (79-100); MONO # 0.6 x10^3/uL (0.0-1.1); MONO % 10 % (0-9); NEUT # 4.1 x10^3/uL (1.8-7.7); NEUT % 66 % (31-73); PLATELET COUNT 162 x10^3/uL (140-400); RED BLOOD COUNT 3.92 x10^6/uL (3.50-5.40); RED CELL DISTRIBUTION WIDTH 14.8 % (11.5-14.5); WHITE BLOOD COUNT 6.3 x10^3/uL (4.0-11.0)
[2020-05-16 05:05] LABS: CALCIUM 8.7 mg/dL (8.5-10.1); CREATININE 0.8 mg/dL (0.6-1.0); GFR 72.9; POTASSIUM 3.7 mmol/L (3.5-5.1)
[2020-05-16] MEDS: LEVOTHYROXINE 100 MCG TABLET PO SCH (06:08)
[2020-05-16 07:00] VITALS: BP 150/72
[2020-05-16] MEDS: CETIRIZINE HCL 10 MG TABLET. PO SCH (09:00)
[2020-05-16] MEDS: POLYETHYLENE GLYCOL 3350 17 GM PACKET. PO SCH (09:00)
[2020-05-16] MEDS: MUPIROCIN 2 % NASAL OINTMENT 22GM TUBE. TP SCH ×3 (09:00→21:00)
[2020-05-16] MEDS: CALCIUM CARB/VIT D3 500/200 TABLET. PO SCH (09:00)
--- NOTE | 2020-05-16 09:41 | NUR ---
SW following. Discussed with RN, pt likely ready for discharge today. MICHELLE spoke with Cookie to advise of potential discharge. Cookie will collect pt when ready for dc. RN notified. No further SW needs.
--- NOTE | 2020-05-16 10:23 | PDOC ---
Infectious Disease Note Subjective Subjective Doing well and no complaints No F?C/S/N/V/d/SOA/rash or pain Vital Sign Vital Signs Vital Signs Date Time Temp Pulse Resp B/P (MAP) Pulse Ox O2 Delivery O2 Flow Rate FiO2 05/16/20 07:00 98.8 77 18 150/72 (98) 96 Room Air 98.8 05/15/20 15:41 2.0 Physical Exam PHYSICAL EXAM GENERAL: Propped up in bed, alert, smiling HEENT: Normal conjunctivae. Oropharynx pink and moist. Dentures in place. NECK: Supple. LUNGS: Clear to auscultation. HEART: S1 and S2. BACK: There are no wounds, redness or warmth, nontender. ABDOMEN: Obese, soft, nontender with bowel sounds present. EXTREMITIES: No gross edema or cyanosis. SKIN: Warm to touch. No signs of rash. NEUROLOGIC: Alert. Answers simple questions appropriately, follows cues. Moves all extremities. Labs Lab Laboratory Tests Test 05/16/20 03:09 White Blood Count 6.3 x10^3/uL (4.0-11.0) Red Blood Count 3.92 x10^6/uL (3.50-5.40) Hemoglobin 12.4 g/dL (12.0-15.5) Hematocrit 36.8 % (36.0-47.0) Mean Corpuscular Volume 94 fL (79-100) Mean Corpuscular Hemoglobin 32 pg (25-35) Mean Corpuscular Hemoglobin Concent 34 g/dL (31-37) Red Cell Distribution Width 14.8 % (11.5-14.5) Platelet Count 162 x10^3/uL (140-400) Neutrophils (%) (Auto) 66 % (31-73) Lymphocytes (%) (Auto) 22 % (24-48) Monocytes (%) (Auto) 10 % (0-9) Eosinophils (%) (Auto) 3 % (0-3) Basophils (%) (Auto) 0 % (0-3) Neutrophils # (Auto) 4.1 x10^3/uL (1.8-7.7) Lymphocytes # (Auto) 1.4 x10^3/uL (1.0-4.8) Monocytes # (Auto) 0.6 x10^3/uL (0.0-1.1) Eosinophils # (Auto) 0.2 x10^3/uL (0.0-0.7) Basophils # (Auto) 0.0 x10^3/uL (0.0-0.2) Sodium Level 140 mmol/L (136-145) Potassium Level 3.7 mmol/L (3.5-5.1) Chloride Level 104 mmol/L (98-107) Carbon Dioxide Level 27 mmol/L (21-32) Anion Gap 9 (6-14) Blood Urea Nitrogen 14 mg/dL (7-20) Creatinine 0.8 mg/dL (0.6-1.0) Estimated GFR (Cockcroft-Gault) 72.9 Glucose Level 65 mg/dL (70-99) Calcium Level 8.7 mg/dL (8.5-10.1) Micro Microbiology 05/13/20 Blood Culture - Preliminary, Resulted NO GROWTH AFTER 3 DAYS 05/12/20 Urine Culture - Final, Complete Objective Assessment Suspected infectious spondylitis of L5-S1 on MRI, 05/11 - S/p bone biopsy 05/15 Chronic low back pain. Developmentally delay Hypothyroidism Resident of a prison. Plan Plan of Care Begin zosyn/Daptomycin F/u cultures and gram stain (bacterial, fungal and AFB). D/w nursing SOFIA DESIR MD May 16, 2020 10:23
[2020-05-16 11:00] VITALS: BP 119/88
[2020-05-16] MEDS: DAPTOmycin (GENERIC) IVPB 400 MG in IV NORMAL SALINE 50ML 50 ML IV SCH (13:22)
--- NOTE | 2020-05-16 13:48 | PDOC ---
PROGRESS NOTES Date of Service: DATE: 05/16/20 TIME: 13:43 Chief Complaint Chief Complaint Suspected infectious spondylitis of L5-S1 on MRI, 05/11 obesity, BMI 42 Chronic low back pain. Developmentally delay, MR, low baseline mental status Hypothyroidism Resident of a correction. History of Present Illness History of Present Illness Patient feels fine today. She denies back pain, fever, nausea, vomiting. Vitals Vitals Vital Signs Date Time Temp Pulse Resp B/P (MAP) Pulse Ox O2 Delivery O2 Flow Rate FiO2 05/16/20 11:00 98.2 89 16 119/88 (98) 98 Room Air 98.2 05/15/20 15:41 2.0 Physical Exam Physical Exam GENERAL: Propped up in bed, alert, smiling HEENT: Normal conjunctivae. Oropharynx pink and moist. Dentures in place. NECK: Supple. LUNGS: Clear to auscultation. HEART: S1 and S2. BACK: There are no wounds, redness or warmth, nontender. ABDOMEN: Obese, soft, nontender with bowel sounds present. EXTREMITIES: No gross edema or cyanosis. SKIN: Warm to touch. No signs of rash. NEUROLOGIC: Alert. Answers simple questions appropriately, follows cues. Moves all extremities. General: Alert, Cooperative, No acute distress Heart: Regular rate, Normal S1, Normal S2 Lungs: Other (Breathing comfortably on room air) Abdomen: Normal bowel sounds, Soft Extremities: No clubbing, No edema, Normal pulses Skin: No breakdown Labs LABS Laboratory Tests Test 05/16/20 03:09 White Blood Count 6.3 x10^3/uL (4.0-11.0) Red Blood Count 3.92 x10^6/uL (3.50-5.40) Hemoglobin 12.4 g/dL (12.0-15.5) Hematocrit 36.8 % (36.0-47.0) Mean Corpuscular Volume 94 fL (79-100) Mean Corpuscular Hemoglobin 32 pg (25-35) Mean Corpuscular Hemoglobin Concent 34 g/dL (31-37) Red Cell Distribution Width 14.8 % (11.5-14.5) Platelet Count 162 x10^3/uL (140-400) Neutrophils (%) (Auto) 66 % (31-73) Lymphocytes (%) (Auto) 22 % (24-48) Monocytes (%) (Auto) 10 % (0-9) Eosinophils (%) (Auto) 3 % (0-3) Basophils (%) (Auto) 0 % (0-3) Neutrophils # (Auto) 4.1 x10^3/uL (1.8-7.7) Lymphocytes # (Auto) 1.4 x10^3/uL (1.0-4.8) Monocytes # (Auto) 0.6 x10^3/uL (0.0-1.1) Eosinophils # (Auto) 0.2 x10^3/uL (0.0-0.7) Basophils # (Auto) 0.0 x10^3/uL (0.0-0.2) Sodium Level 140 mmol/L (136-145) Potassium Level 3.7 mmol/L (3.5-5.1) Chloride Level 104 mmol/L (98-107) Carbon Dioxide Level 27 mmol/L (21-32) Anion Gap 9 (6-14) Blood Urea Nitrogen 14 mg/dL (7-20) Creatinine 0.8 mg/dL (0.6-1.0) Estimated GFR (Cockcroft-Gault) 72.9 Glucose Level 65 mg/dL (70-99) Calcium Level 8.7 mg/dL (8.5-10.1) Review of Systems Review of Systems Denies back pain. All other systems negative. 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 Zosyn and Daptomysin per ID. Comment Review of Relevant I have reviewed the following items álvaro (where applicable) has been applied. Labs Laboratory Tests Test 05/15/20 08:20 05/15/20 09:20 05/16/20 03:09 Prothrombin Time 13.8 SEC (11.7-14.0) Prothromb Time International Ratio 1.1 (0.8-1.1) SARS-CoV-2 Antigen (Rapid) Negative (NEGATIVE) White Blood Count 6.3 x10^3/uL (4.0-11.0) Red Blood Count 3.92 x10^6/uL (3.50-5.40) Hemoglobin 12.4 g/dL (12.0-15.5) Hematocrit 36.8 % (36.0-47.0) Mean Corpuscular Volume 94 fL (79-100) Mean Corpuscular Hemoglobin 32 pg (25-35) Mean Corpuscular Hemoglobin Concent 34 g/dL (31-37) Red Cell Distribution Width 14.8 % (11.5-14.5) Platelet Count 162 x10^3/uL (140-400) Neutrophils (%) (Auto) 66 % (31-73) Lymphocytes (%) (Auto) 22 % (24-48) Monocytes (%) (Auto) 10 % (0-9) Eosinophils (%) (Auto) 3 % (0-3) Basophils (%) (Auto) 0 % (0-3) Neutrophils # (Auto) 4.1 x10^3/uL (1.8-7.7) Lymphocytes # (Auto) 1.4 x10^3/uL (1.0-4.8) Monocytes # (Auto) 0.6 x10^3/uL (0.0-1.1) Eosinophils # (Auto) 0.2 x10^3/uL (0.0-0.7) Basophils # (Auto) 0.0 x10^3/uL (0.0-0.2) Sodium Level 140 mmol/L (136-145) Potassium Level 3.7 mmol/L (3.5-5.1) Chloride Level 104 mmol/L (98-107) Carbon Dioxide Level 27 mmol/L (21-32) Anion Gap 9 (6-14) Blood Urea Nitrogen 14 mg/dL (7-20) Creatinine 0.8 mg/dL (0.6-1.0) Estimated GFR (Cockcroft-Gault) 72.9 Glucose Level 65 mg/dL (70-99) Calcium Level 8.7 mg/dL (8.5-10.1) Laboratory Tests Test 05/16/20 03:09 White Blood Count 6.3 x10^3/uL (4.0-11.0) Red Blood Count 3.92 x10^6/uL (3.50-5.40) Hemoglobin 12.4 g/dL (12.0-15.5) Hematocrit 36.8 % (36.0-47.0) Mean Corpuscular Volume 94 fL (79-100) Mean Corpuscular Hemoglobin 32 pg (25-35) Mean Corpuscular Hemoglobin Concent 34 g/dL (31-37) Red Cell Distribution Width 14.8 % (11.5-14.5) Platelet Count 162 x10^3/uL (140-400) Neutrophils (%) (Auto) 66 % (31-73) Lymphocytes (%) (Auto) 22 % (24-48) Monocytes (%) (Auto) 10 % (0-9) Eosinophils (%) (Auto) 3 % (0-3) Basophils (%) (Auto) 0 % (0-3) Neutrophils # (Auto) 4.1 x10^3/uL (1.8-7.7) Lymphocytes # (Auto) 1.4 x10^3/uL (1.0-4.8) Monocytes # (Auto) 0.6 x10^3/uL (0.0-1.1) Eosinophils # (Auto) 0.2 x10^3/uL (0.0-0.7) Basophils # (Auto) 0.0 x10^3/uL (0.0-0.2) Sodium Level 140 mmol/L (136-145) Potassium Level 3.7 mmol/L (3.5-5.1) Chloride Level 104 mmol/L (98-107) Carbon Dioxide Level 27 mmol/L (21-32) Anion Gap 9 (6-14) Blood Urea Nitrogen 14 mg/dL (7-20) Creatinine 0.8 mg/dL (0.6-1.0) Estimated GFR (Cockcroft-Gault) 72.9 Glucose Level 65 mg/dL (70-99) Calcium Level 8.7 mg/dL (8.5-10.1) Microbiology 05/15/20 Gram Stain - Final, Resulted 05/15/20 Aerobic and Anaerobic Culture, Resulted Pending 05/13/20 Blood Culture - Preliminary, Resulted NO GROWTH AFTER 3 DAYS 05/12/20 Urine Culture - Final, Complete Medications Current Medications Acetaminophen (Tylenol) 650 mg PRN Q6HRS PRN PO MILD PAIN 1-3; Start 05/13/20 at 05:15 Levothyroxine Sodium (Synthroid) 100 mcg DAILY06 PO Last administered on 05/16/20at 06:08; Start 05/13/20 at 11:30 Mupirocin (Bactroban) 1 lizeth TID TP ; Start 05/13/20 at 14:00 Polyethylene Glycol (miraLAX PACKET) 17 gm DAILY PO Last administered on 05/16/20at 09:00; Start 05/13/20 at 11:30 Trimethoprim/ Sulfamethoxazole (Bactrim Ds) 1 tab BID PO ; Start 05/13/20 at 21:00; Status UNV Calcium/Vitamin D (Oscal D 500mg/ 200uts) 1 tab DAILY PO Last administered on 05/16/20at 09:00; Start 05/13/20 at 11:30 Cetirizine HCl (ZyrTEC) 10 mg DAILY PO Last administered on 05/16/20at 09:00; Start 05/13/20 at 11:30 Lidocaine HCl (Buffered Lidocaine 1%) 3 ml STK-MED ONCE .ROUTE ; Start 05/15/20 at 12:05; Stop 05/15/20 at 12:06; Status DC Midazolam HCl (Versed) 2 mg STK-MED ONCE .ROUTE ; Start 05/15/20 at 13:31; Stop 05/15/20 at 13:32; Status DC Ketamine HCl (Ketamine) 500 mg STK-MED ONCE .ROUTE ; Start 05/15/20 at 13:41; Stop 05/15/20 at 13:41; Status DC Lidocaine HCl (Buffered Lidocaine 1%) 3 ml 1X ONCE INJ Last administered on 05/15/20at 14:00; Start 05/15/20 at 14:00; Stop 05/15/20 at 14:01; Status DC Propofol (Diprivan) 200 mg STK-MED ONCE IV ; Start 05/15/20 at 13:56; Stop 05/15/20 at 13:56; Status DC Lidocaine HCl (Lidocaine Pf 2% Vial) 5 ml STK-MED ONCE .ROUTE ; Start 05/15/20 at 13:56; Stop 05/15/20 at 13:56; Status DC Fentanyl Citrate (Fentanyl 2ml Vial) 100 mcg STK-MED ONCE .ROUTE ; Start 05/15/20 at 14:47; Stop 05/15/20 at 14:48; Status DC Prochlorperazine Edisylate (Compazine) 10 mg STK-MED ONCE .ROUTE ; Start 05/15/20 at 14:48; Stop 05/15/20 at 14:48; Status DC Fentanyl Citrate (Fentanyl 2ml Vial) 50 mcg 1X ONCE IVP Last administered on 05/15/20at 15:39; Start 05/15/20 at 15:30; Stop 05/15/20 at 15:34; Status DC Prochlorperazine Edisylate (Compazine) 5 mg 1X ONCE IV Last administered on 05/15/20at 15:38; Start 05/15/20 at 15:30; Stop 05/15/20 at 15:34; Status DC Daptomycin 400 mg/ Sodium Chloride 50 ml @ 100 mls/hr Q24H IV Last administered on 05/16/20at 13:22; Start 05/16/20 at 13:00 Active Scripts Active Mupirocin Ointment (Mupirocin) 22 Gm Oint...g. 1 Lizeth TP TID Bactrim Ds Tablet (Sulfamethoxazole/Trimethoprim) 1 Each Tablet 1 Each PO BID Reported Miralax (Polyethylene Glycol 3350) 17 Gm Powd.pack 1 Pkt PO DAILY Loratadine 10 Mg Tablet 1 Tab PO DAILY Levothyroxine Sodium 100 Mcg Tablet 1 Tab PO DAILY Calcium 500 + Vit D 400 Tablet (Calcium Carbonate/Vitamin D3) 1 Each Tablet 1 Tab PO DAILY 30 Days Vitamin D (Cholecalciferol (Vitamin D3)) 5,000 Unit Tablet 5,000 Unit PO Vitals/I & O Vital Sign - Last 24 Hours 05/15/20 05/15/20 05/15/20 05/15/20 14:45 14:49 14:49 15:39 Temp 97.7 97.7 Pulse 73 73 Resp 13 15 15 B/P (MAP) 116/77 (90) 121/74 Pulse Ox 98 98 98 O2 Delivery Nasal Cannula Nasal Cannula Nasal Cannula O2 Flow Rate 2.0 2.0 2.0 2.0 05/15/20 05/15/20 05/15/20 05/15/20 15:41 16:26 19:00 20:00 Temp 98.0 97.7 98.0 97.7 Pulse 72 71 Resp 16 16 B/P (MAP) 124/68 (86) 134/64 (87) Pulse Ox 94 97 O2 Delivery Nasal Cannula Room Air Room Air Room Air O2 Flow Rate 2.0 05/15/20 05/16/20 05/16/20 05/16/20 23:00 03:00 07:00 08:40 Temp 97.7 97.7 98.8 97.7 97.7 98.8 Pulse 76 72 77 Resp 16 16 18 B/P (MAP) 128/67 (87) 124/64 (84) 150/72 (98) Pulse Ox 97 98 96 O2 Delivery Room Air Room Air Room Air Room Air 05/16/20 11:00 Temp 98.2 98.2 Pulse 89 Resp 16 B/P (MAP) 119/88 (98) Pulse Ox 98 O2 Delivery Room Air Intake and Output 05/15/20 05/15/20 05/16/20 15:00 23:00 07:00 Intake Total 400 ml 200 ml Balance 400 ml 200 ml Justicifation of Admission Dx: Justifications for Admission: Justification of Admission Dx: Yes IVAN MARRERO MD May 16, 2020 13:48
[2020-05-16 15:00] VITALS: BP 123/60
[2020-05-16 19:00] VITALS: BP 124/68
[2020-05-16 23:00] VITALS: BP 122/61
[2020-05-17 03:00] VITALS: BP 128/72
[2020-05-17] MEDS: LEVOTHYROXINE 100 MCG TABLET PO SCH (06:27)
[2020-05-17] MEDS: MUPIROCIN 2 % NASAL OINTMENT 22GM TUBE. TP SCH ×2 (06:35→21:00)
[2020-05-17 07:00] VITALS: BP 127/65
[2020-05-17 07:21] LABS: BASO % 0 % (0-3); EOS # 0.2 x10^3/uL (0.0-0.7); EOS % 4 % (0-3); HEMATOCRIT 34.6 % (36.0-47.0); HEMOGLOBIN 11.8 g/dL (12.0-15.5); LYMPH # 1.7 x10^3/uL (1.0-4.8); LYMPH % 32 % (24-48); MEAN CORPUSCULAR HEMOGLOBIN 32 pg (25-35); MEAN CORPUSCULAR HGB CONC 34 g/dL (31-37); MEAN CORPUSCULAR VOLUME 94 fL (79-100); MONO # 0.5 x10^3/uL (0.0-1.1); MONO % 10 % (0-9); NEUT # 2.8 x10^3/uL (1.8-7.7); NEUT % 54 % (31-73); PLATELET COUNT 181 x10^3/uL (140-400); RED CELL DISTRIBUTION WIDTH 14.7 % (11.5-14.5); WHITE BLOOD COUNT 5.2 x10^3/uL (4.0-11.0)
[2020-05-17] MEDS: CALCIUM CARB/VIT D3 500/200 TABLET. PO SCH (08:44)
[2020-05-17] MEDS: POLYETHYLENE GLYCOL 3350 17 GM PACKET. PO SCH (08:44)
[2020-05-17] MEDS: CETIRIZINE HCL 10 MG TABLET. PO SCH (08:44)
[2020-05-17 09:16] LABS: C-REACTIVE PROTEIN 20.3 mg/L (0-3.3); CALCIUM 8.5 mg/dL (8.5-10.1); CREATININE 0.9 mg/dL (0.6-1.0); GFR 63.7; POTASSIUM 3.7 mmol/L (3.5-5.1)
--- NOTE | 2020-05-17 10:47 | PDOC ---
Infectious Disease Note Subjective Subjective Doing well and no complaints No F?C/S/N/V/d/SOA/rash or pain Vital Sign Vital Signs Vital Signs Date Time Temp Pulse Resp B/P (MAP) Pulse Ox O2 Delivery O2 Flow Rate FiO2 05/17/20 08:00 Room Air 05/17/20 07:00 98.8 71 18 127/65 (85) 96 98.8 Physical Exam PHYSICAL EXAM GENERAL: Propped up in bed, alert, smiling HEENT: Normal conjunctivae. Oropharynx pink and moist. Dentures in place. NECK: Supple. LUNGS: Clear to auscultation. HEART: S1 and S2. BACK: There are no wounds, redness or warmth, nontender. ABDOMEN: Obese, soft, nontender with bowel sounds present. EXTREMITIES: No gross edema or cyanosis. SKIN: Warm to touch. No signs of rash. NEUROLOGIC: Alert. Answers simple questions appropriately, follows cues. Moves all extremities. Labs Lab Laboratory Tests Test 05/17/20 03:10 White Blood Count 5.2 x10^3/uL (4.0-11.0) Red Blood Count 3.70 x10^6/uL (3.50-5.40) Hemoglobin 11.8 g/dL (12.0-15.5) Hematocrit 34.6 % (36.0-47.0) Mean Corpuscular Volume 94 fL (79-100) Mean Corpuscular Hemoglobin 32 pg (25-35) Mean Corpuscular Hemoglobin Concent 34 g/dL (31-37) Red Cell Distribution Width 14.7 % (11.5-14.5) Platelet Count 181 x10^3/uL (140-400) Neutrophils (%) (Auto) 54 % (31-73) Lymphocytes (%) (Auto) 32 % (24-48) Monocytes (%) (Auto) 10 % (0-9) Eosinophils (%) (Auto) 4 % (0-3) Basophils (%) (Auto) 0 % (0-3) Neutrophils # (Auto) 2.8 x10^3/uL (1.8-7.7) Lymphocytes # (Auto) 1.7 x10^3/uL (1.0-4.8) Monocytes # (Auto) 0.5 x10^3/uL (0.0-1.1) Eosinophils # (Auto) 0.2 x10^3/uL (0.0-0.7) Basophils # (Auto) 0.0 x10^3/uL (0.0-0.2) Sodium Level 139 mmol/L (136-145) Potassium Level 3.7 mmol/L (3.5-5.1) Chloride Level 103 mmol/L (98-107) Carbon Dioxide Level 27 mmol/L (21-32) Anion Gap 9 (6-14) Blood Urea Nitrogen 13 mg/dL (7-20) Creatinine 0.9 mg/dL (0.6-1.0) Estimated GFR (Cockcroft-Gault) 63.7 Glucose Level 70 mg/dL (70-99) Calcium Level 8.5 mg/dL (8.5-10.1) C-Reactive Protein, Quantitative 20.3 mg/L (0-3.3) Micro Microbiology 05/13/20 Blood Culture - Preliminary, Resulted NO GROWTH AFTER 3 DAYS 05/12/20 Urine Culture - Final, Complete Objective Assessment Suspected infectious spondylitis of L5-S1 on MRI, 05/11 - S/p bone biopsy 05/15 Chronic low back pain. Developmentally delay Hypothyroidism Resident of a fci. Plan Plan of Care Began zosyn/Daptomycin 05/16 F/u cultures and gram stain (bacterial, fungal and AFB). D/w nursing SOFIA DESIR MD May 17, 2020 10:47
[2020-05-17 11:00] VITALS: BP 134/68
--- NOTE | 2020-05-17 11:09 | NUR ---
SW following. Discussed with RN, pt on IV abx - cultures pending. MICHELLE spoke with Cookie at [facility] - pt cannot do home infusion at the longterm. Cookie advised they would be able to bring pt for daily outpatient infusions if needed. MICHELLE will continue to follow.
[2020-05-17] MEDS: DAPTOmycin (GENERIC) IVPB 400 MG in IV NORMAL SALINE 50ML 50 ML IV SCH (12:06)
[2020-05-17] MEDS ORDERED: PIPERACILLIN/TAZOBACTAM 4.5 GM in IV NORMAL SALINE 100ML 100 ML IV SCH (14:00)
[2020-05-17 15:00] VITALS: BP 122/62
--- NOTE | 2020-05-17 15:00 | NUR ---
Clinical Assessment Manager received new order for Zosyn, antibiotic started. Patient began to c/o being "really hot". Patients face, arms, chest, legs all red and blotchy. Antibiotic stopped and IV flushed. Paged Dr. Richardson to notify of reaction to antibiotic. Spoke to Dr. Soria and received new order for benadryl, administered dose. Gave patient fan and wet cloths to apply to face. VS T97.6, 125/65, pulse 105, 100% SpO2 on room air. Awaiting call back from Dr. Richardson. Addendum: 05/17/20 at 1546 by ARYA JORDAN RN Received call back from Dr. Richardson, received new order to discontinue the Zosyn and just continue Daptomycin for now. Will continue to monitor patient.
[2020-05-17] MEDS ORDERED: diphenhydrAMINE 50 MG/ML VIAL IVP PRN (15:15)
[2020-05-17 19:00] VITALS: BP 147/57
--- NOTE | 2020-05-17 19:01 | PDOC ---
PROGRESS NOTES Date of Service: DATE: 05/17/20 TIME: 19:01 Chief Complaint Chief Complaint Suspected infectious spondylitis of L5-S1 on MRI, 05/11 obesity, BMI 42 Chronic low back pain. Developmentally delay, MR, low baseline mental status Hypothyroidism Resident of a care home. History of Present Illness History of Present Illness Patient feels fine today. She denies back pain, fever, nausea, vomiting. Vitals Vitals Vital Signs Date Time Temp Pulse Resp B/P (MAP) Pulse Ox O2 Delivery O2 Flow Rate FiO2 05/17/20 15:00 98.3 62 16 122/62 (82) 96 Room Air 98.3 Physical Exam Physical Exam GENERAL: Propped up in bed, alert, smiling HEENT: Normal conjunctivae. Oropharynx pink and moist. Dentures in place. NECK: Supple. LUNGS: Clear to auscultation. HEART: S1 and S2. BACK: There are no wounds, redness or warmth, nontender. ABDOMEN: Obese, soft, nontender with bowel sounds present. EXTREMITIES: No gross edema or cyanosis. SKIN: Warm to touch. No signs of rash. NEUROLOGIC: Alert. Answers simple questions appropriately, follows cues. Moves all extremities. General: Alert, Cooperative, No acute distress Heart: Regular rate, Normal S1, Normal S2 Lungs: Other (Breathing comfortably on room air) Abdomen: Normal bowel sounds, Soft Extremities: No clubbing, No edema, Normal pulses Skin: No breakdown Labs LABS Laboratory Tests Test 05/17/20 03:10 White Blood Count 5.2 x10^3/uL (4.0-11.0) Red Blood Count 3.70 x10^6/uL (3.50-5.40) Hemoglobin 11.8 g/dL (12.0-15.5) Hematocrit 34.6 % (36.0-47.0) Mean Corpuscular Volume 94 fL (79-100) Mean Corpuscular Hemoglobin 32 pg (25-35) Mean Corpuscular Hemoglobin Concent 34 g/dL (31-37) Red Cell Distribution Width 14.7 % (11.5-14.5) Platelet Count 181 x10^3/uL (140-400) Neutrophils (%) (Auto) 54 % (31-73) Lymphocytes (%) (Auto) 32 % (24-48) Monocytes (%) (Auto) 10 % (0-9) Eosinophils (%) (Auto) 4 % (0-3) Basophils (%) (Auto) 0 % (0-3) Neutrophils # (Auto) 2.8 x10^3/uL (1.8-7.7) Lymphocytes # (Auto) 1.7 x10^3/uL (1.0-4.8) Monocytes # (Auto) 0.5 x10^3/uL (0.0-1.1) Eosinophils # (Auto) 0.2 x10^3/uL (0.0-0.7) Basophils # (Auto) 0.0 x10^3/uL (0.0-0.2) Sodium Level 139 mmol/L (136-145) Potassium Level 3.7 mmol/L (3.5-5.1) Chloride Level 103 mmol/L (98-107) Carbon Dioxide Level 27 mmol/L (21-32) Anion Gap 9 (6-14) Blood Urea Nitrogen 13 mg/dL (7-20) Creatinine 0.9 mg/dL (0.6-1.0) Estimated GFR (Cockcroft-Gault) 63.7 Glucose Level 70 mg/dL (70-99) Calcium Level 8.5 mg/dL (8.5-10.1) C-Reactive Protein, Quantitative 20.3 mg/L (0-3.3) Assessment and Plan Assessmemt and Plan Problems Medical Problems: (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 Labs Laboratory Tests Test 05/16/20 03:09 05/17/20 03:10 White Blood Count 6.3 x10^3/uL (4.0-11.0) 5.2 x10^3/uL (4.0-11.0) Red Blood Count 3.92 x10^6/uL (3.50-5.40) 3.70 x10^6/uL (3.50-5.40) Hemoglobin 12.4 g/dL (12.0-15.5) 11.8 g/dL (12.0-15.5) Hematocrit 36.8 % (36.0-47.0) 34.6 % (36.0-47.0) Mean Corpuscular Volume 94 fL (79-100) 94 fL (79-100) Mean Corpuscular Hemoglobin 32 pg (25-35) 32 pg (25-35) Mean Corpuscular Hemoglobin Concent 34 g/dL (31-37) 34 g/dL (31-37) Red Cell Distribution Width 14.8 % (11.5-14.5) 14.7 % (11.5-14.5) Platelet Count 162 x10^3/uL (140-400) 181 x10^3/uL (140-400) Neutrophils (%) (Auto) 66 % (31-73) 54 % (31-73) Lymphocytes (%) (Auto) 22 % (24-48) 32 % (24-48) Monocytes (%) (Auto) 10 % (0-9) 10 % (0-9) Eosinophils (%) (Auto) 3 % (0-3) 4 % (0-3) Basophils (%) (Auto) 0 % (0-3) 0 % (0-3) Neutrophils # (Auto) 4.1 x10^3/uL (1.8-7.7) 2.8 x10^3/uL (1.8-7.7) Lymphocytes # (Auto) 1.4 x10^3/uL (1.0-4.8) 1.7 x10^3/uL (1.0-4.8) Monocytes # (Auto) 0.6 x10^3/uL (0.0-1.1) 0.5 x10^3/uL (0.0-1.1) Eosinophils # (Auto) 0.2 x10^3/uL (0.0-0.7) 0.2 x10^3/uL (0.0-0.7) Basophils # (Auto) 0.0 x10^3/uL (0.0-0.2) 0.0 x10^3/uL (0.0-0.2) Sodium Level 140 mmol/L (136-145) 139 mmol/L (136-145) Potassium Level 3.7 mmol/L (3.5-5.1) 3.7 mmol/L (3.5-5.1) Chloride Level 104 mmol/L (98-107) 103 mmol/L (98-107) Carbon Dioxide Level 27 mmol/L (21-32) 27 mmol/L (21-32) Anion Gap 9 (6-14) 9 (6-14) Blood Urea Nitrogen 14 mg/dL (7-20) 13 mg/dL (7-20) Creatinine 0.8 mg/dL (0.6-1.0) 0.9 mg/dL (0.6-1.0) Estimated GFR (Cockcroft-Gault) 72.9 63.7 Glucose Level 65 mg/dL (70-99) 70 mg/dL (70-99) Calcium Level 8.7 mg/dL (8.5-10.1) 8.5 mg/dL (8.5-10.1) C-Reactive Protein, Quantitative 20.3 mg/L (0-3.3) Laboratory Tests Test 05/17/20 03:10 White Blood Count 5.2 x10^3/uL (4.0-11.0) Red Blood Count 3.70 x10^6/uL (3.50-5.40) Hemoglobin 11.8 g/dL (12.0-15.5) Hematocrit 34.6 % (36.0-47.0) Mean Corpuscular Volume 94 fL (79-100) Mean Corpuscular Hemoglobin 32 pg (25-35) Mean Corpuscular Hemoglobin Concent 34 g/dL (31-37) Red Cell Distribution Width 14.7 % (11.5-14.5) Platelet Count 181 x10^3/uL (140-400) Neutrophils (%) (Auto) 54 % (31-73) Lymphocytes (%) (Auto) 32 % (24-48) Monocytes (%) (Auto) 10 % (0-9) Eosinophils (%) (Auto) 4 % (0-3) Basophils (%) (Auto) 0 % (0-3) Neutrophils # (Auto) 2.8 x10^3/uL (1.8-7.7) Lymphocytes # (Auto) 1.7 x10^3/uL (1.0-4.8) Monocytes # (Auto) 0.5 x10^3/uL (0.0-1.1) Eosinophils # (Auto) 0.2 x10^3/uL (0.0-0.7) Basophils # (Auto) 0.0 x10^3/uL (0.0-0.2) Sodium Level 139 mmol/L (136-145) Potassium Level 3.7 mmol/L (3.5-5.1) Chloride Level 103 mmol/L (98-107) Carbon Dioxide Level 27 mmol/L (21-32) Anion Gap 9 (6-14) Blood Urea Nitrogen 13 mg/dL (7-20) Creatinine 0.9 mg/dL (0.6-1.0) Estimated GFR (Cockcroft-Gault) 63.7 Glucose Level 70 mg/dL (70-99) Calcium Level 8.5 mg/dL (8.5-10.1) C-Reactive Protein, Quantitative 20.3 mg/L (0-3.3) Microbiology 05/15/20 Gram Stain - Final, Resulted 05/15/20 Aerobic and Anaerobic Culture - Preliminary, Resulted 05/13/20 Blood Culture - Preliminary, Resulted NO GROWTH AFTER 4 DAYS 05/12/20 Urine Culture - Final, Complete Medications Current Medications Acetaminophen (Tylenol) 650 mg PRN Q6HRS PRN PO MILD PAIN 1-3; Start 05/13/20 at 05:15 Levothyroxine Sodium (Synthroid) 100 mcg DAILY06 PO Last administered on 05/17/20at 06:27; Start 05/13/20 at 11:30 Mupirocin (Bactroban) 1 lizeth TID TP ; Start 05/13/20 at 14:00 Polyethylene Glycol (miraLAX PACKET) 17 gm DAILY PO Last administered on 05/16/20at 09:00; Start 05/13/20 at 11:30 Trimethoprim/ Sulfamethoxazole (Bactrim Ds) 1 tab BID PO ; Start 05/13/20 at 21:00; Status UNV Calcium/Vitamin D (Oscal D 500mg/ 200uts) 1 tab DAILY PO Last administered on 05/17/20at 08:44; Start 05/13/20 at 11:30 Cetirizine HCl (ZyrTEC) 10 mg DAILY PO Last administered on 05/17/20at 08:44; Start 05/13/20 at 11:30 Lidocaine HCl (Buffered Lidocaine 1%) 3 ml STK-MED ONCE .ROUTE ; Start 05/15/20 at 12:05; Stop 05/15/20 at 12:06; Status DC Midazolam HCl (Versed) 2 mg STK-MED ONCE .ROUTE ; Start 05/15/20 at 13:31; Stop 05/15/20 at 13:32; Status DC Ketamine HCl (Ketamine) 500 mg STK-MED ONCE .ROUTE ; Start 05/15/20 at 13:41; Stop 05/15/20 at 13:41; Status DC Lidocaine HCl (Buffered Lidocaine 1%) 3 ml 1X ONCE INJ Last administered on 05/15/20at 14:00; Start 05/15/20 at 14:00; Stop 05/15/20 at 14:01; Status DC Propofol (Diprivan) 200 mg STK-MED ONCE IV ; Start 05/15/20 at 13:56; Stop 05/15/20 at 13:56; Status DC Lidocaine HCl (Lidocaine Pf 2% Vial) 5 ml STK-MED ONCE .ROUTE ; Start 05/15/20 at 13:56; Stop 05/15/20 at 13:56; Status DC Fentanyl Citrate (Fentanyl 2ml Vial) 100 mcg STK-MED ONCE .ROUTE ; Start 05/15/20 at 14:47; Stop 05/15/20 at 14:48; Status DC Prochlorperazine Edisylate (Compazine) 10 mg STK-MED ONCE .ROUTE ; Start 05/15/20 at 14:48; Stop 05/15/20 at 14:48; Status DC Fentanyl Citrate (Fentanyl 2ml Vial) 50 mcg 1X ONCE IVP Last administered on 05/15/20at 15:39; Start 05/15/20 at 15:30; Stop 05/15/20 at 15:34; Status DC Prochlorperazine Edisylate (Compazine) 5 mg 1X ONCE IV Last administered on 05/15/20at 15:38; Start 05/15/20 at 15:30; Stop 05/15/20 at 15:34; Status DC Daptomycin 400 mg/ Sodium Chloride 50 ml @ 100 mls/hr Q24H IV Last adminis tered on 05/17/20at 12:06; Start 05/16/20 at 13:00 Lactobacillus Rhamnosus (Culturelle) 1 cap BID PO ; Start 05/17/20 at 21:00 Piperacillin Sod/ Tazobactam Sod 4.5 gm/Sodium Chloride 100 ml @ 200 mls/hr Q6HRS IV Last administered on 05/17/20at 14:14; Start 05/17/20 at 14:00; Stop 05/17/20 at 15:49; Status DC Diphenhydramine HCl (Benadryl) 25 mg PRN Q6HRS PRN IVP ITCHING Last admi nistered on 05/17/20at 15:08; Start 05/17/20 at 15:15 Active Scripts Active Mupirocin Ointment (Mupirocin) 22 Gm Oint...g. 1 Lizeth TP TID Bactrim Ds Tablet (Sulfamethoxazole/Trimethoprim) 1 Each Tablet 1 Each PO BID Reported Miralax (Polyethylene Glycol 3350) 17 Gm Powd.pack 1 Pkt PO DAILY Loratadine 10 Mg Tablet 1 Tab PO DAILY Levothyroxine Sodium 100 Mcg Tablet 1 Tab PO DAILY Calcium 500 + Vit D 400 Tablet (Calcium Carbonate/Vitamin D3) 1 Each Tablet 1 Tab PO DAILY 30 Days Vitamin D (Cholecalciferol (Vitamin D3)) 5,000 Unit Tablet 5,000 Unit PO Vitals/I & O Vital Sign - Last 24 Hours 05/16/20 05/16/20 05/17/20 05/17/20 20:06 23:00 03:00 07:00 Temp 98.6 98.2 98.8 98.6 98.2 98.8 Pulse 77 73 71 Resp 20 16 18 B/P (MAP) 122/61 (81) 128/72 (90) 127/65 (85) Pulse Ox 98 97 96 O2 Delivery Room Air Room Air Room Air Room Air 05/17/20 05/17/20 05/17/20 08:00 11:00 15:00 Temp 97.8 98.3 97.8 98.3 Pulse 68 62 Resp 18 16 B/P (MAP) 134/68 (90) 122/62 (82) Pulse Ox 95 96 O2 Delivery Room Air Room Air Room Air Intake and Output 05/16/20 05/16/20 05/17/20 15:00 23:00 07:00 Intake Total 2250 ml Balance 2250 ml Justicifation of Admission Dx: Justifications for Admission: Justification of Admission Dx: Yes IVAN MARRERO MD May 17, 2020 19:01
[2020-05-17] MEDS: LACTOBACILLUS RHAMNOSUS GG 1 CAPSULE. PO SCH (22:41)
[2020-05-17 23:00] VITALS: BP 94/55
[2020-05-18 03:00] VITALS: BP 61/44
[2020-05-18] MEDS: LEVOTHYROXINE 100 MCG TABLET PO SCH (06:27)
[2020-05-18 07:00] VITALS: BP 134/90
[2020-05-18] MEDS: POLYETHYLENE GLYCOL 3350 17 GM PACKET. PO SCH ×2 (09:00→09:54)
[2020-05-18] MEDS: MUPIROCIN 2 % NASAL OINTMENT 22GM TUBE. TP SCH ×4 (09:00→21:00)
[2020-05-18] MEDS: CETIRIZINE HCL 10 MG TABLET. PO SCH (09:54)
[2020-05-18] MEDS: CALCIUM CARB/VIT D3 500/200 TABLET. PO SCH (09:54)
[2020-05-18] MEDS: LACTOBACILLUS RHAMNOSUS GG 1 CAPSULE. PO SCH ×2 (09:54→21:23)
[2020-05-18 11:00] VITALS: BP 133/72
--- NOTE | 2020-05-18 11:18 | PDOC ---
Infectious Disease Note Subjective Subjective Doing well and no complaints No F/C/S/N/V/d/SOA/rash or pain Had rash on face and arms yesterday - but better ROS ROS o/w neg Vital Sign Vital Signs Vital Signs Date Time Temp Pulse Resp B/P (MAP) Pulse Ox O2 Delivery O2 Flow Rate FiO2 05/18/20 11:00 97.6 81 18 133/72 (92) 97 Room Air 97.6 Physical Exam PHYSICAL EXAM GENERAL: Propped up in bed, alert, smiling HEENT: Normal conjunctivae. Oropharynx pink and moist. Dentures in place. NECK: Supple. LUNGS: Clear to auscultation. HEART: S1 and S2. BACK: There are no wounds, redness or warmth, nontender. ABDOMEN: Obese, soft, nontender with bowel sounds present. EXTREMITIES: No gross edema or cyanosis. SKIN: Warm to touch. No signs of rash. NEUROLOGIC: Alert. Answers simple questions appropriately, follows cues. Moves all extremities. 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 Developmentally delay Hypothyroidism Resident of a jail. Plan Plan of Care Off zosyn - rash resolved Cont Daptomycin 05/16 F/u cultures and gram stain (bacterial, fungal and AFB) all neg so far D/w nursing SOFIA DESIR MD May 18, 2020 11:18
--- NOTE | 2020-05-18 11:24 | NUR ---
SW following. Discussed with RN and Dr. Richardson. Dr. Richardson waiting on cultures. SW notified Dr. Richardson of pt not being able to do home infusion at the [facility], but able to do outpatient infusion with a q24 abx. MICHELLE will continue to follow.
--- NOTE | 2020-05-18 12:36 | PDOC ---
PROGRESS NOTES Date of Service: DATE: 05/18/20 TIME: 12:34 Chief Complaint Chief Complaint Suspected infectious spondylitis of L5-S1 on MRI, 05/11 obesity, BMI 42 Chronic low back pain. Developmentally delay, MR, low baseline mental status Hypothyroidism Resident of a [facility]. History of Present Illness History of Present Illness Patient again has no concerns or complaints. She denies any back pain fever nausea vomiting. Vitals Vitals Vital Signs Date Time Temp Pulse Resp B/P (MAP) Pulse Ox O2 Delivery O2 Flow Rate FiO2 05/18/20 11:00 97.6 81 18 133/72 (92) 97 Room Air 97.6 Physical Exam Physical Exam GENERAL: Propped up in bed, alert, smiling HEENT: Normal conjunctivae. Oropharynx pink and moist. Dentures in place. NECK: Supple. LUNGS: Clear to auscultation. HEART: S1 and S2. BACK: There are no wounds, redness or warmth, nontender. ABDOMEN: Obese, soft, nontender with bowel sounds present. EXTREMITIES: No gross edema or cyanosis. SKIN: Warm to touch. No signs of rash. NEUROLOGIC: Alert. Answers simple questions appropriately, follows cues. Moves all extremities. General: Alert, Cooperative, No acute distress Heart: Regular rate, Normal S1, Normal S2 Lungs: Other (Breathing comfortably on room air) Abdomen: Normal bowel sounds, Soft Extremities: No clubbing, No edema, Normal pulses Skin: No breakdown Review of Systems Review of Systems Denies back pain, fever, nausea. 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 Labs Laboratory Tests Test 05/17/20 03:10 White Blood Count 5.2 x10^3/uL (4.0-11.0) Red Blood Count 3.70 x10^6/uL (3.50-5.40) Hemoglobin 11.8 g/dL (12.0-15.5) Hematocrit 34.6 % (36.0-47.0) Mean Corpuscular Volume 94 fL (79-100) Mean Corpuscular Hemoglobin 32 pg (25-35) Mean Corpuscular Hemoglobin Concent 34 g/dL (31-37) Red Cell Distribution Width 14.7 % (11.5-14.5) Platelet Count 181 x10^3/uL (140-400) Neutrophils (%) (Auto) 54 % (31-73) Lymphocytes (%) (Auto) 32 % (24-48) Monocytes (%) (Auto) 10 % (0-9) Eosinophils (%) (Auto) 4 % (0-3) Basophils (%) (Auto) 0 % (0-3) Neutrophils # (Auto) 2.8 x10^3/uL (1.8-7.7) Lymphocytes # (Auto) 1.7 x10^3/uL (1.0-4.8) Monocytes # (Auto) 0.5 x10^3/uL (0.0-1.1) Eosinophils # (Auto) 0.2 x10^3/uL (0.0-0.7) Basophils # (Auto) 0.0 x10^3/uL (0.0-0.2) Sodium Level 139 mmol/L (136-145) Potassium Level 3.7 mmol/L (3.5-5.1) Chloride Level 103 mmol/L (98-107) Carbon Dioxide Level 27 mmol/L (21-32) Anion Gap 9 (6-14) Blood Urea Nitrogen 13 mg/dL (7-20) Creatinine 0.9 mg/dL (0.6-1.0) Estimated GFR (Cockcroft-Gault) 63.7 Glucose Level 70 mg/dL (70-99) Calcium Level 8.5 mg/dL (8.5-10.1) C-Reactive Protein, Quantitative 20.3 mg/L (0-3.3) Microbiology 05/15/20 Gram Stain - Final, Resulted 05/15/20 Aerobic and Anaerobic Culture - Preliminary, Resulted 05/13/20 Blood Culture - Final, Complete NO GROWTH AFTER 5 DAYS 05/12/20 Urine Culture - Final, Complete Medications Current Medications Acetaminophen (Tylenol) 650 mg PRN Q6HRS PRN PO MILD PAIN 1-3; Start 05/13/20 at 05:15 Levothyroxine Sodium (Synthroid) 100 mcg DAILY06 PO Last administered on 05/18/20at 06:27; Start 05/13/20 at 11:30 Mupirocin (Bactroban) 1 lizeth TID TP ; Start 05/13/20 at 14:00 Polyethylene Glycol (miraLAX PACKET) 17 gm DAILY PO Last administered on 0at 09:00; Start 05/13/20 at 11:30 Trimethoprim/ Sulfamethoxazole (Bactrim Ds) 1 tab BID PO ; Start 05/13/20 at 21:00; Status UNV Calcium/Vitamin D (Oscal D 500mg/ 200uts) 1 tab DAILY PO Last administered on 05/18/20at 09:54; Start 05/13/20 at 11:30 Cetirizine HCl (ZyrTEC) 10 mg DAILY PO Last administered on 05/18/20at 09:54; Start 05/13/20 at 11:30 Lidocaine HCl (Buffered Lidocaine 1%) 3 ml STK-MED ONCE .ROUTE ; Start 05/15/20 at 12:05; Stop 05/15/20 at 12:06; Status DC Midazolam HCl (Versed) 2 mg STK-MED ONCE .ROUTE ; Start 05/15/20 at 13:31; Stop 05/15/20 at 13:32; Status DC Ketamine HCl (Ketamine) 500 mg STK-MED ONCE .ROUTE ; Start 05/15/20 at 13:41; Stop 05/15/20 at 13:41; Status DC Lidocaine HCl (Buffered Lidocaine 1%) 3 ml 1X ONCE INJ Last administered on 05/15/20at 14:00; Start 05/15/20 at 14:00; Stop 05/15/20 at 14:01; Status DC Propofol (Diprivan) 200 mg STK-MED ONCE IV ; Start 05/15/20 at 13:56; Stop 05/15/20 at 13:56; Status DC Lidocaine HCl (Lidocaine Pf 2% Vial) 5 ml STK-MED ONCE .ROUTE ; Start 05/15/20 at 13:56; Stop 05/15/20 at 13:56; Status DC Fentanyl Citrate (Fentanyl 2ml Vial) 100 mcg STK-MED ONCE .ROUTE ; Start 05/15/20 at 14:47; Stop 05/15/20 at 14:48; Status DC Prochlorperazine Edisylate (Compazine) 10 mg STK-MED ONCE .ROUTE ; Start 05/15/20 at 14:48; Stop 05/15/20 at 14:48; Status DC Fentanyl Citrate (Fentanyl 2ml Vial) 50 mcg 1X ONCE IVP Last administered on 05/15/20at 15:39; Start 05/15/20 at 15:30; Stop 05/15/20 at 15:34; Status DC Prochlorperazine Edisylate (Compazine) 5 mg 1X ONCE IV Last administered on 05/15/20at 15:38; Start 05/15/20 at 15:30; Stop 05/15/20 at 15:34; Status DC Daptomycin 400 mg/ Sodium Chloride 50 ml @ 100 mls/hr Q24H IV Last administered on 05/17/20at 12:06; Start 05/16/20 at 13:00 Lactobacillus Rhamnosus (Culturelle) 1 cap BID PO Last administered on 05/18/20at 09:54; Start 05/17/20 at 21:00 Piperacillin Sod/ Tazobactam Sod 4.5 gm/Sodium Chloride 100 ml @ 200 mls/hr Q6HRS IV Last administered on 05/17/20at 14:14; Start 05/17/20 at 14:00; Stop 05/17/20 at 15:49; Status DC Diphenhydramine HCl (Benadryl) 25 mg PRN Q6HRS PRN IVP ITCHING Last administered on 05/17/20at 15:08; Start 05/17/20 at 15:15 Active Scripts Active Mupirocin Ointment (Mupirocin) 22 Gm Oint...g. 1 Lizeth TP TID Bactrim Ds Tablet (Sulfamethoxazole/Trimethoprim) 1 Each Tablet 1 Each PO BID Reported Miralax (Polyethylene Glycol 3350) 17 Gm Powd.pack 1 Pkt PO DAILY Loratadine 10 Mg Tablet 1 Tab PO DAILY Levothyroxine Sodium 100 Mcg Tablet 1 Tab PO DAILY Calcium 500 + Vit D 400 Tablet (Calcium Carbonate/Vitamin D3) 1 Each Tablet 1 Tab PO DAILY 30 Days Vitamin D (Cholecalciferol (Vitamin D3)) 5,000 Unit Tablet 5,000 Unit PO Vitals/I & O Vital Sign - Last 24 Hours 05/17/20 05/17/20 05/17/20 05/17/20 15:00 19:00 20:00 23:00 Temp 98.3 99.0 98.5 98.3 99.0 98.5 Pulse 62 76 75 Resp 16 16 16 B/P (MAP) 122/62 (82) 147/57 (87) 94/55 (68) Pulse Ox 96 99 94 O2 Delivery Room Air Room Air Room Air Room Air 05/18/20 05/18/20 05/18/20 05/18/20 03:00 07:00 08:00 11:00 Temp 98.3 98.4 97.6 98.3 98.4 97.6 Pulse 78 67 81 Resp 16 16 18 B/P (MAP) 61/44 (50) 134/90 (105) 133/72 (92) Pulse Ox 98 97 97 O2 Delivery Room Air Room Air Room Air Room Air Intake and Output 05/17/20 05/17/20 05/18/20 15:00 23:00 07:00 Intake Total 150 ml Balance 150 ml Justicifation of Admission Dx: Justifications for Admission: Justification of Admission Dx: Yes IVAN MARRERO MD May 18, 2020 12:36
[2020-05-18] MEDS: DAPTOmycin (GENERIC) IVPB 400 MG in IV NORMAL SALINE 50ML 50 ML IV SCH (13:55)
[2020-05-18 15:00] VITALS: BP 124/64
[2020-05-18 19:48] VITALS: BP 125/62
[2020-05-18 23:39] VITALS: BP 150/63
[2020-05-19 03:54] VITALS: BP 117/62
[2020-05-19] MEDS: LEVOTHYROXINE 100 MCG TABLET PO SCH (06:36)
[2020-05-19 07:00] VITALS: BP 129/86
[2020-05-19] MEDS: CALCIUM CARB/VIT D3 500/200 TABLET. PO SCH (08:25)
[2020-05-19] MEDS: LACTOBACILLUS RHAMNOSUS GG 1 CAPSULE. PO SCH (08:25)
[2020-05-19] MEDS: CETIRIZINE HCL 10 MG TABLET. PO SCH (08:26)
[2020-05-19] MEDS: MUPIROCIN 2 % NASAL OINTMENT 22GM TUBE. TP SCH ×2 (08:26→14:00)
[2020-05-19] MEDS: POLYETHYLENE GLYCOL 3350 17 GM PACKET. PO SCH (08:26)
--- NOTE | 2020-05-19 09:35 | NUR ---
MICHELLE following. Discussed with RN, awaiting confirmation of abx needed at discharge. MICHELLE will continue to follow. Addendum: 05/19/20 at 1257 by JAS MARTINEZ Pt getting PICC line today, needing IV dapto q24 at discharge. MICHELLE faxed referral to outpatient infusion, as pt cannot do home infusion at the [facility]. Per RN, pt's sister, Aliya wants infusion time of 0930, MICHELLE verified with [facility] if Aliya is able to bring pt etc. [facility] advised this is fine. SW awaiting confirmation from the outpatient infusion clinic of infusion time. RN notified. Addendum: 05/19/20 at 1426 by JAS MARTINEZ Pt scheduled for 10am at outpatient infusion, scheduled for 8am on Friday. Cookie baxter [facility] notified. Pt's sister Aliya notified. RN notified. Pt awaiting PICC line then can discharge home.
--- NOTE | 2020-05-19 10:53 | PDOC ---
Infectious Disease Note Subjective Subjective Doing well and no complaints No F/C/S/N/V/d/SOA/rash or pain Had rash on face and arms yesterday - but better Vital Sign Vital Signs Vital Signs Date Time Temp Pulse Resp B/P (MAP) Pulse Ox O2 Delivery O2 Flow Rate FiO2 05/19/20 08:00 Room Air 05/19/20 07:00 98.0 72 18 129/86 (100) 98.0 05/19/20 03:54 97 Physical Exam PHYSICAL EXAM GENERAL: Propped up in bed, alert, smiling HEENT: Normal conjunctivae. Oropharynx pink and moist. Dentures in place. NECK: Supple. LUNGS: Clear to auscultation. HEART: S1 and S2. BACK: There are no wounds, redness or warmth, nontender. ABDOMEN: Obese, soft, nontender with bowel sounds present. EXTREMITIES: No gross edema or cyanosis. SKIN: Warm to touch. No signs of rash. NEUROLOGIC: Alert. Answers simple questions appropriately, follows cues. Moves all extremities. 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 Developmentally delay Hypothyroidism Resident of a halfway. Plan Plan of Care PICC Cont Daptomycin 05/16 D/w sister and will treat for 2 weeks and repeat MRI. Explained cults are neg currently but could still grow. Discussed reaction to Zosyn. MRI in 2 weeks may not show improvement and having had a biopsy may show some change in the area but if improving then can cont treatment Rx Written and in chrt and d/w licensed master social worker F/u cultures and gram stain (bacterial, fungal and AFB) all neg so far D/w nursing SOFIA DESIR MD May 19, 2020 10:53
[2020-05-19 11:00] VITALS: BP 149/82
--- NOTE | 2020-05-19 13:48 | PDOC ---
PROGRESS NOTES Date of Service: DATE: 05/19/20 TIME: 13:43 Chief Complaint Chief Complaint Suspected infectious spondylitis of L5-S1 on MRI, 05/11 obesity, BMI 42 Chronic low back pain. Developmentally delay, MR, low baseline mental status Hypothyroidism Resident of a [facility]. History of Present Illness History of Present Illness Patient seen and evaluated with family present. Discussed the plan of care and answered questions and concerns. Patient states she feels well, and looking forward to going home. She denies fever, chills, SOB, or chest pain. Vitals Vitals Vital Signs Date Time Temp Pulse Resp B/P (MAP) Pulse Ox O2 Delivery O2 Flow Rate FiO2 05/19/20 11:00 97.5 82 20 149/82 (104) 97 Room Air 97.5 Physical Exam Physical Exam GENERAL: Propped up in bed, alert, smiling HEENT: Normal conjunctivae. Oropharynx pink and moist. Dentures in place. NECK: Supple. LUNGS: Clear to auscultation. HEART: S1 and S2. BACK: There are no wounds, redness or warmth, nontender. ABDOMEN: Obese, soft, nontender with bowel sounds present. EXTREMITIES: No gross edema or cyanosis. SKIN: Warm to touch. No signs of rash. NEUROLOGIC: Alert. Answers simple questions appropriately, follows cues. Moves all extremities. General: Alert, Cooperative, No acute distress Heart: Regular rate, Normal S1, Normal S2 Lungs: Other (Breathing comfortably on room air) Abdomen: Normal bowel sounds, Soft Extremities: No clubbing, No edema, Normal pulses Skin: No breakdown Review of Systems Review of Systems Denies fever, denies chills, denies chest pain, denies shortness of breath. 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 She will need a follow-up MRI after 2 weeks. Discussed with family and patient. Greater than 30 minutes was spent on discharge management. Comment Review of Relevant I have reviewed the following items álvaro (where applicable) has been applied. Labs Microbiology 05/15/20 Gram Stain - Final, Resulted 05/15/20 Aerobic and Anaerobic Culture - Preliminary, Resulted 05/13/20 Blood Culture - Final, Complete NO GROWTH AFTER 5 DAYS 05/12/20 Urine Culture - Final, Complete Medications Current Medications Acetaminophen (Tylenol) 650 mg PRN Q6HRS PRN PO MILD PAIN 1-3; Start 05/13/20 at 05:15 Levothyroxine Sodium (Synthroid) 100 mcg DAILY06 PO Last administered on 05/19/20at 06:36; Start 05/13/20 at 11:30 Mupirocin (Bactroban) 1 lizeth TID TP ; Start 05/13/20 at 14:00 Polyethylene Glycol (miraLAX PACKET) 17 gm DAILY PO Last administered on 05/16/20at 09:00; Start 05/13/20 at 11:30 Trimethoprim/ Sulfamethoxazole (Bactrim Ds) 1 tab BID PO ; Start 05/13/20 at 21:00; Status UNV Calcium/Vitamin D (Oscal D 500mg/ 200uts) 1 tab DAILY PO Last administered on 05/19/20at 08:25; Start 05/13/20 at 11:30 Cetirizine HCl (ZyrTEC) 10 mg DAILY PO Last administered on 05/19/20at 08:26; Start 05/13/20 at 11:30 Lidocaine HCl (Buffered Lidocaine 1%) 3 ml STK-MED ONCE .ROUTE ; Start 05/15/20 at 12:05; Stop 05/15/20 at 12:06; Status DC Midazolam HCl (Versed) 2 mg STK-MED ONCE .ROUTE ; Start 05/15/20 at 13:31; Stop 05/15/20 at 13:32; Status DC Ketamine HCl (Ketamine) 500 mg STK-MED ONCE .ROUTE ; Start 05/15/20 at 13:41; Stop 05/15/20 at 13:41; Status DC Lidocaine HCl (Buffered Lidocaine 1%) 3 ml 1X ONCE INJ Last administered on 05/15/20at 14:00; Start 05/15/20 at 14:00; Stop 05/15/20 at 14:01; Status DC Propofol (Diprivan) 200 mg STK-MED ONCE IV ; Start 05/15/20 at 13:56; Stop 05/15/20 at 13:56; Status DC Lidocaine HCl (Lidocaine Pf 2% Vial) 5 ml STK-MED ONCE .ROUTE ; Start 05/15/20 at 13:56; Stop 05/15/20 at 13:56; Status DC Fentanyl Citrate (Fentanyl 2ml Vial) 100 mcg STK-MED ONCE .ROUTE ; Start 05/15/20 at 14:47; Stop 05/15/20 at 14:48; Status DC Prochlorperazine Edisylate (Compazine) 10 mg STK-MED ONCE .ROUTE ; Start 05/15/20 at 14:48; Stop 05/15/20 at 14:48; Status DC Fentanyl Citrate (Fentanyl 2ml Vial) 50 mcg 1X ONCE IVP Last administered on 05/15/20at 15:39; Start 05/15/20 at 15:30; Stop 05/15/20 at 15:34; Status DC Prochlorperazine Edisylate (Compazine) 5 mg 1X ONCE IV Last administered on 05/15/20at 15:38; Start 05/15/20 at 15:30; Stop 05/15/20 at 15:34; Status DC Daptomycin 400 mg/ Sodium Chloride 50 ml @ 100 mls/hr Q24H IV Last administered on 05/18/20at 13:55; Start 05/16/20 at 13:00 Lactobacillus Rhamnosus (Culturelle) 1 cap BID PO Last administered on 05/19/20at 08:25; Start 05/17/20 at 21:00 Piperacillin Sod/ Tazobactam Sod 4.5 gm/Sodium Chloride 100 ml @ 200 mls/hr Q6HRS IV Last administered on 05/17/20at 14:14; Start 05/17/20 at 14:00; Stop 05/17/20 at 15:49; Status DC Diphenhydramine HCl (Benadryl) 25 mg PRN Q6HRS PRN IVP ITCHING Last adm inistered on 05/17/20at 15:08; Start 05/17/20 at 15:15 Active Scripts Active Mupirocin Ointment (Mupirocin) 22 Gm Oint...g. 1 Lizeth TP TID Bactrim Ds Tablet (Sulfamethoxazole/Trimethoprim) 1 Each Tablet 1 Each PO BID Reported Miralax (Polyethylene Glycol 3350) 17 Gm Powd.pack 1 Pkt PO DAILY Loratadine 10 Mg Tablet 1 Tab PO DAILY Levothyroxine Sodium 100 Mcg Tablet 1 Tab PO DAILY Calcium 500 + Vit D 400 Tablet (Calcium Carbonate/Vitamin D3) 1 Each Tablet 1 Tab PO DAILY 30 Days Vitamin D (Cholecalciferol (Vitamin D3)) 5,000 Unit Tablet 5,000 Unit PO Vitals/I & O Vital Sign - Last 24 Hours 05/18/20 05/18/20 05/18/20 05/18/20 15:00 19:48 20:00 23:39 Temp 97.6 97.9 98.5 97.6 97.9 98.5 Pulse 78 79 68 Resp 18 20 16 B/P (MAP) 124/64 (84) 125/62 (83) 150/63 (92) Pulse Ox 99 98 95 O2 Delivery Room Air Room Air Room Air Room Air 05/19/20 05/19/20 05/19/20 05/19/20 03:54 07:00 08:00 11:00 Temp 97.4 98.0 97.5 97.4 98.0 97.5 Pulse 66 72 82 Resp 18 18 20 B/P (MAP) 117/62 (80) 129/86 (100) 149/82 (104) Pulse Ox 97 97 O2 Delivery Room Air Room Air Room Air Room Air Intake and Output 05/18/20 05/18/20 05/19/20 15:00 23:00 07:00 Intake Total 160 ml Balance 160 ml Justicifation of Admission Dx: Justifications for Admission: Justification of Admission Dx: Yes IVAN MARRERO MD May 19, 2020 13:48
[2020-05-19 13:59] LABS: PROTHROMBIN TIME PATIENT 12.8 SEC (11.7-14.0)
--- NOTE | 2020-05-19 14:00 | PDOC3 ---
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 Meyers is a 60 old female who presented with spondylo-arthritis. She had a fluoroscopically guided bone biopsy to L5 vertebrae. Aerobic and anaerobic and fungal cultures show no growth to date. Consultations were placed to infectious disease. Patient was treated with appropriate antibiotics, and she was discharged on daptomycin IV for 2 weeks. She will need follow-up MRI in 2 weeks. Patient was stable for discharge. 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 Discharge Information Condition at Discharge: Stable Follow Up: Weeks Disposition/Orders: D/C to Home Scheduled Calcium Carbonate/Vitamin D3 (Calcium 500 + Vit D 400 Tablet) 1 Each Tablet, 1 TAB PO DAILY for 30 Days, #30 Ref 0 (Reported) Entered as Reported by: BHARAT AGUILA on 05/12/201844 Last Action: Converted on 05/13/201100 by EDGAR DUNCAN Levothyroxine Sodium (Levothyroxine Sodium) 100 Mcg Tablet, 1 TAB PO DAILY, #30 Ref 5 (Reported) Entered as Reported by: BHARAT AGUILA on 05/12/201844 Last Action: Continued on 05/13/201100 by EDGAR DUNCAN Loratadine (Loratadine) 10 Mg Tablet, 1 TAB PO DAILY, #30 Ref 5 (Reported) Entered as Reported by: BHARAT AGUILA on 05/12/201844 Last Action: Converted on 05/13/201100 by EDGAR DUNCAN Mupirocin (Mupirocin Ointment) 22 Gm Oint...g., 1 CARMEN TP TID for cellulitis, #1 Prescribed by: BRE ROJAS on 08/22/16 1600 Last Action: Continued on 05/13/201100 by EDGAR DUNCAN Polyethylene Glycol 3350 (Miralax) 17 Gm Powd.pack, 1 PKT PO DAILY, (Reported) Entered as Reported by: BHARAT AGUILA on 05/12/201844 Last Action: Continued on 05/13/201100 by EDGAR DUNCAN Sulfamethoxazole/Trimethoprim (Bactrim Ds Tablet) 1 Each Tablet, 1 EACH PO BID, #20 Prescribed by: BRE ROJAS on 08/22/16 1600 Last Action: Continued on 05/13/201100 by EDGAR DUNCAN Miscellaneous Medications Cholecalciferol (Vitamin D3) (Vitamin D) 5,000 Unit Tablet, 5,000 UNIT PO, (Reported) Entered as Reported by: NOEMY MASON on 03/30/151958 Last Action: HELD on 05/13/201100 by EDGAR DUNCAN Discontinued Medications Calcium Carbonate (Calcium) 500 Mg Tab.chew, 500 MG PO, (Reported) Discontinued Reason: med change Entered as Reported by: NOEMY MASON on 03/30/151958 Last Action: Discontinued on 05/12/201844 by BHARAT AGUILA Levothyroxine Sodium (Levothyroxine Sodium) 50 Mcg Tablet, 100 MCG PO DAILYAC for THYROID SUPPLEMENT, #30 Ref 0 (Reported) Discontinued Reason: dose soto Entered as Reported by: MARCIANO SULLIVAN on 03/10/14 1534 Last Action: Discontinued on 05/12/201844 by BHARAT AGUILA Justicifation of Admission Dx: Justifications for Admission: Justification of Admission Dx: Yes IVAN MARRERO MD May 19, 2020 14:00
[2020-05-19] MEDS ORDERED: LIDOCAINE WITH 8.4% SOD BICARB 3 ML DISP.SYRIN. ONE (14:28)
[2020-05-19] MEDS ORDERED: LIDOCAINE WITH 8.4% SOD BICARB 3 ML DISP.SYRIN. INJ ONE (14:30)
[2020-05-19] MEDS: DAPTOmycin (GENERIC) IVPB 400 MG in IV NORMAL SALINE 50ML 50 ML IV SCH (15:10)
--- NOTE | 2020-05-19 16:07 | RAD ---
Exam: Fluoroscopic and ultrasound guided right percutaneous inserted central venous catheter placement 05/19/2020 2:04 PM .Indication: long-term abx Technique: Informed oral and written consent were obtained. The right upper extremity was prepped and draped using sterile barrier technique. All elements of maximal sterile barrier technique including the use of a cap, mask, sterile gown, sterile gloves, large sterile sheet, appropriate hand hygiene, and 2% chlorhexidine for cutaneous antisepsis (or acceptable alternative antiseptic per current guidelines) were followed for this procedure.. Real-time ultrasound demonstrated a patent right basilic vein which was prepped and draped in usual sterile fashion. 1% lidocaine used for local anesthesia. Using real-time ultrasound guidance the access needle percutaneously punctured the selected right basilic vein. Reference ultrasound images were saved to the medical record. A guidewire was advanced through the needle to the cavoatrial junction, and a peel-away sheath placed. The catheter was cut to length and inserted through the peel-away sheath such that its tip is at the cavoatrial junction. The wire and sheath were removed, and the catheter secured in place, and a sterile dressing was applied. Catheter was found to flush and aspirate normally. No immediate complications are identified. FLUORO TIME: 0.3 DOSE AREA PRODUCT: 1 Gycm2 Impression: Ultrasound and fluoroscopically guided placement of a right upper extremity PICC line.
--- NOTE | 2020-05-19 16:18 | NUR ---
pt discharged back to [facility]. PICC in place. Discharge paperwork discussed with sister. Assisted to wheelchair and was taken to main entrance and secured in car with family.
== END 2020-05-19 16:20 | disposition home or self-care (01) | DRG 478 ==
LOC: ER 17:58 → 4 NORTH 22:29
PROVIDERS: ADMIT Internal Medicine; ATTEND Internal Medicine
PROC: 02HV33Z Insertion of Infusion Device into Superior Vena Cava, Percutaneous Approach (ICD-10-PCS; 2020-05-15)
PROC: B5181ZA Fluoroscopy of Superior Vena Cava using Low Osmolar Contrast, Guidance (ICD-10-PCS; 2020-05-15)
PROC: B548ZZA Ultrasonography of Superior Vena Cava, Guidance (ICD-10-PCS; 2020-05-15)
PROC: 0QB03ZX Excision of Lumbar Vertebra, Percutaneous Approach, Diagnostic (ICD-10-PCS; principal; 2020-05-15 13:00)
DX: M46.56 Other infective spondylopathies, lumbar region (principal); Z68.41 Body mass index [BMI] 40.0-44.9, adult; E03.9 Hypothyroidism, unspecified; E66.9 Obesity, unspecified; G89.29 Other chronic pain; M19.90 Unspecified osteoarthritis, unspecified site; M85.80 Other specified disorders of bone density and structure, unspecified site; Z80.0 Family history of malignant neoplasm of digestive organs; Z88.8 Allergy status to other drugs, medicaments and biological substances; Z20.828 Contact with and (suspected) exposure to other viral communicable diseases
CPT/HCPCS: 20225; 36415; 36573; 76942; 77001; 80048; 80053; 81001; 83605; 85025; 85610; 86140; 87040; 87071; 87075; 87086; 87102; 87116; 87176; 87426; C1892; J0780; J0878; J1200; J2250; J2543; J2704; J3010; J3490; 99285-25; G0378; U0003-CS

== ENCOUNTER → 2020-05-30 | Outpatient (CLI) | payer OTHER, MEDICAID ==
[2020-05-29 10:26] VITALS: BP 138/65
[~2020-05-30] MED LIST changes: +CALC-30 PO; +LEVO100T5 PO; +LORA10TA3 PO; +POLY17PO29 PO
--- NOTE | 2020-05-30 10:56 | RAD ---
MRI Lumbar Spine without contrast History: Worsening low back pain Technique: Multiplanar, multi sequential noncontrast MR imaging was performed of the lumbar spine. Comparison: May 11, 2020 Findings: There is again prominent abnormal edema of what is considered the L5 and S1 vertebral bodies as well as persistent abnormal edematous signal change in the widened L5-S1 intervertebral disc space. There is again inferior L5 and superior S1 endplate irregularity. There is adjacent paraspinous soft tissue edema which has increased. No new separate focus of marrow edema is identified. There is again old superior L1 compression deformity without osseous retropulsion. There is again very minimal posterior subluxation L4 relative to L5. Conus terminates at L1. There is again moderate to severe L4-5 degenerative disc disease, minimally at L2-3. L1-L2: Spinal canal and neural foramina are adequate. L2-L3: There is again minimal bulge. There is again mild buckling of the ligamentum flavum and facet degenerative change. There is again mild narrowing of the far lateral recesses greater on the left. Neural foramina are not significantly narrowed, very mild posterior narrowing on the left by facet. L3-L4: Neural foramina and spinal canal are adequate. There is mild buckling of the ligamentum flavum. L4-L5: There is again minimal disc osteophyte complex and bulge superimposed on the minimally posteriorly subluxed inferior L4 vertebral body margin. There is mild facet degenerative change and buckling of the ligamentum flavum. There is similar mild narrowing of the far lateral recesses greater on the left. There is mild inferior narrowing of the left neural foramen, right neural foramen adequate. L5-S1: There is again minimal posterior bulge. There is again prominence of posterior epidural fat centrally. There is minimal facet degenerative change. Spinal canal is overall adequate. There is again fairly severe left and moderate to severe distal right neural foramina compromise in part from edematous signal abnormality at the anterior margins of the neural foramina. Impression: 1. There is again severe marrow edema of the L5 and S1 vertebral bodies as well as edematous signal abnormality in the widened L5-S1 intervertebral disc space, evidence of infectious spondylitis. There is increased adjacent paraspinous soft tissue edema greater anteriorly. 2. There is no new significant lumbar spinal stenosis, mild narrowing of the far lateral recesses on the left at L2-3 and L4-5. 3. There is again degenerative disc disease at L4-5, also mild posterior subluxation L4 relative to L5. 4. There is fairly severe bilateral L5-S1 neural foramina compromise in part by edematous signal abnormality at the anterior neural foramina although there may be component of bulge and disc osteophyte complex. Electronically signed by: Chay Tipton MD (05/30/2020 10:52 AM) [id number]
== END | disposition home or self-care (01) ==
LOC: MRI 08:47
PROVIDERS: ATTEND Internal Medicine Infectious Disease
DX: M51.37 Other intervertebral disc degeneration, lumbosacral region (principal); M46.56 Other infective spondylopathies, lumbar region; M43.8X6 Other specified deforming dorsopathies, lumbar region; M25.78 Osteophyte, vertebrae
CPT/HCPCS: 72148